=== PATIENT | male | born 1975 | race Caucasian/White ===

== ENCOUNTER 2021-05-17 06:46 | Day surgery (SDC) | payer OTHER, MEDICAID, SELFPAY ==
[2021-05-17] VITALS (20 sets, daily range): BP systolic 103–166; BP diastolic 71–101; PULSE 91–125; RESP 15–27; TEMP 36.3–36.5; O2SAT 95–100; BMI 24.4
--- NOTE | 2021-05-17 07:05 | ED.GENADULT ---
HPI - General Adult General Chief complaint: Urogenital-Male Stated complaint: Possible kidney stone, painful bloating Time Seen by Provider: 05/17/21 07:03 Source: patient Mode of arrival: Ambulatory History of Present Illness HPI narrative: 46-year-old gentleman with a history of smoking but no other documented medical history is he does not typically seek medical care. He has a congenital solitary kidney and history of kidney stones. He describes having kidney stone like pain which consist of a left sided sensation of a sword in pale in him from the front and coming out through the back. This time he had an associated painful bloated belly and has been unable to drink or eat any significant volumes for at least the last week. He describes being able to lay on his back only and is only able to sleep for couple of hours due to pain. He can not lay on his stomach at all secondary to pain. He has not had any urine output at all for the last 24-36 hours. He describes using 600 mg of ibuprofen b.i.d. to help with pain has been trying to limit this aware of its effect on renal function. He notes he has had increased reflux recently and severe gas. He tried Gas-X and had about 6 hours of relief after that however it did not work a 2nd time. He recently used laxative because he had not had a bowel movement for a while he reports ?lots of stool? and this did seem to help with relieving the bloating and pressure in the abdomen. He does report fevers and chills particularly around episodes of emesis. He does describe some nausea as well as orthostatic dizziness. He has had no chest pain, dyspnea or palpitations. He is not vaccinated and not currently planning to do so and has not been infected with COVID. He states that he uses masks religiously. Related Data Home Medications Medication Instructions Recorded Confirmed No Known Home Medications 05/17/21 05/17/21 Allergies Allergy/AdvReac Type Severity Reaction Status Date / Time oxycodone [From Percocet] AdvReac Intermediate Vomiting Verified 05/17/21 08:15 Review of Systems Review of Systems Narrative: Remainder of complete review of systems is otherwise unremarkable except for that included in the HPI. Patient History Medical History Absent kidney, congenital Social History household members: none Smoking Status: Current every day smoker alcohol intake: current Smoking Status: Current every day smoker alcohol intake frequency: 0-2 drinks per day Substance Use Type: does not use Exam Narrative Exam Narrative: General: Appears unwell but in no acute distress. He is able to give a completely coherent history. HEENT: Moist mucous membranes, normal sclera with reactive pupils, Neck: No JVD, supple Respiratory: Lungs are clear to auscultation, no wheezing no rales no rhonchi. Full and symmetrical air movement Cardiac: Regular rate and rhythm no murmurs no bruits Abdomen: Soft, mild diffuse distention and mild tenderness in the left upper quadrant radiating through to the left flank. No rebound or guarding Skin: Pale, Warm and dry, no rashes Neurologic: Grossly neurologically intact with no obvious asymmetries or abnormalities Extremities: No trauma, well perfused Psych: Cooperative, appropriate insight and affect Initial Vital Signs Initial Vital Signs: Vital Signs Temperature 97.4 F L 05/17/21 06:57 Pulse Rate 112 H 05/17/21 06:57 Respiratory Rate 22 05/17/21 06:57 Blood Pressure 159/90 H 05/17/21 06:57 Pulse Oximetry 99 05/17/21 06:57 Course Course Course Narrative: Due to his obstructing renal stone in his solitary ureter, he was taken urgently to the operating room with renal stent placed. Op note as follows: Operative Date/Time/Diagnoses Date of procedure: 05/17/21 Time of procedure: 11:27 Pre-op diagnosis: 1. Severe DESIREE 2. Congenital solitary left kidney 3. Large obstructing left mid ureteral calculus 4. Left nephrolithiasis Post-op diagnosis: same Procedure & Clinicians Procedure: 1. Cystoscopy/placement left ureteral stent. 2. Ureteral stone manipulation without removal. Same procedure as scheduled: Yes Indications: 1. Severe DESIREE 2. Congenital solitary left kidney 3. Obstructing left mid ureteral calculus 4. Left nephrolithiasis Surgeon: Scot Pino Click Yes if Unassisted: Yes Anesthesia Type: General Operative Notes Findings: 1. Urethra-normal penile segment. There was a relatively fixed 20 [place] proximal bulbar stricture that was gently dilated with the [place] sounds. 2. External sphincter- coapted 3. Prostate-4+ cm length with moderate trilobar hyperplasia. 4. Bladder-1+ trabeculation. There is modest intravesical protrusion of median lobe. The ureteral orifices were in normal position but lying in close proximity to the intravesical median lobe. Remainder bladder unremarkable. Closure Type: not applicable Specimen(s): none sent Applied: other (Eight [place]ol[place] by 22-32 cm multi-length stent (no retrieval line left attached)) Estimated Blood Loss (mL): 0 Blood products transfused: none Procedure in detail: Patient was positioned supine administered general anesthesia. He was then repositioned semi lithotomy and the lower abdomen, genitalia, and groin were then prepped and draped in sterile fashion. Twenty-two [place]ese panendoscope was passed lower urinary tract and was unable to be advanced due to the above-described stricture. [place] sounds were then used to gently dilate the segment. The panendoscope was reintroduced and advanced proximally without difficulty. Findings as described above. A 0.35 hybrid guidewire was then selected. This was then advanced through through the working channel of the scope and advanced in the left collecting system under direct and fluoroscopic guidance. Next, an 8 [place] by 22-32 cm multi-length stent was selected. This too was advanced over the guidewire under direct and fluoroscopic guidance. NO RETRIEVAL LINE WAS LEFT ATTACHED. The bladder was then drained completely and all instrumentation removed. The patient was then repositioned in supine, was awakened, and was transferred to a rcrandall to PACU in stable condition. Complications: none Post-operative Condition: stable Disposition: PACU Plan for aftercare: [facility] ED-holding. Signed By:<Electronically signed by Scot Pino MD>05/17/21 1132 Orders Ordered: ED Orders 05/17/21 09:56 COVID19 -Nasal swab/Pre-Proc Stat 05/17/21 10:02 Urinalysis and Microscopic Stat Urine Culture Stat 05/17/21 11:26 XR C-arm up to 60 min Routine 05/17/21 13:18 BMP [Basic Metabolic Panel] Stat Blood Culture Stat Acetaminophen (Acetaminophen 325 Mg Tablet) 650 mg PO Q4H PRN PRN Reason: Pain, Mild (1-3) Fentanyl (Fentanyl 100 Mcg/2 Ml Inj) 50 mcg IV Q1H PRN PRN Reason: Pain, Severe (7-10) Stop: 05/18/21 00:00 Sodium Chloride (Normal Saline 0.9%) 1,000 mls @ 150 mls/hr IV BOLUS ONE Stop: 05/17/21 19:36 Last Infusion: 05/17/21 15:14 Dose: 0 mls/hr Documented by: Admin: 05/17/21 13:07 Dose: 150 mls/hr Documented by: HOLLAND Ondansetron HCl (Ondansetron 4 Mg Odt) 4 mg SL Q8H PRN PRN Reason: Nausea And Vomiting Discontinued Medications Acetaminophen (Acetaminophen 325 Mg Tablet) 975 mg PO PACUNOW ONE Stop: 05/17/21 11:11 Last Admin: 05/17/21 12:58 Dose: Not Given Documented by: HOLLAND Hydrocodone Bitart/Acetaminophen (Hydrocodone/Acet 5/325 Tablet) 1 tab PO Q4H PRN PRN Reason: Pain, Moderate (4-6) Fentanyl (Fentanyl 100 Mcg/2 Ml Inj) 100 mcg IV NOW ONE Stop: 05/17/21 09:56 Last Admin: 05/17/21 09:58 Dose: 100 mcg Documented by: HOLLAND Fentanyl (Fentanyl 100 Mcg/2 Ml Inj) 0 mcg IV Q5M PRN PRN Reason: Pain, Moderate (4-6) Fentanyl (Fentanyl 100 Mcg/2 Ml Inj) 0 mcg IV Q5M PRN PRN Reason: Pain, Severe (7-10) Hydromorphone HCl (Hydromorphone 0.5 Mg Inj) 0.5 mg IV Q15MIN PRN PRN Reason: Pain, Last Admin: 05/17/21 08:52 Dose: 0.5 mg Documented by: Admin: 05/17/21 08:17 Dose: 0.5 mg Documented by: HOLLAND Hydromorphone HCl (Hydromorphone 1 Mg Inj) 1 mg IV NOW ONE Stop: 05/17/21 09:53 Last Admin: 05/17/21 09:55 Dose: Not Given Documented by: HOLLAND Hydromorphone HCl (Hydromorphone 0.5 Mg Inj) 0.5 mg IV Q2H PRN PRN Reason: Pain, Severe (7-10) Sodium Chloride (Normal Saline 0.9%) 1,000 mls @ 1,000 mls/hr IV BOLUS ONE Stop: 05/17/21 08:29 Last Infusion: 05/17/21 08:22 Dose: 0 mls/hr Documented by: Admin: 05/17/21 07:39 Dose: 1,000 mls/hr Documented by: HOLLAND Ceftriaxone Sodium 2,000 mg/ (Sodium Chloride) 100 mls @ 200 mls/hr IV NOW ONE Stop: 05/17/21 08:13 Last Infusion: 05/17/21 09:35 Dose: 0 mls/hr Documented by: Admin: 05/17/21 08:51 Dose: 200 mls/hr Documented by: HOLLAND Sodium Chloride (Normal Saline 0.9%) 1,000 mls @ 150 mls/hr IV BOLUS ONE Stop: 05/17/21 15:03 Last Infusion: 05/17/21 12:58 Dose: 0 mls/hr Documented by: Infusion: 05/17/21 10:17 Dose: 0 mls/hr Documented by: Admin: 05/17/21 08:52 Dose: 150 mls/hr Documented by: HOLLAND Lactated Ringer's (Lactated Ringers) 500 mls @ 25 mls/hr IV CONT STEPHANIE Last Admin: 05/17/21 12:58 Dose: Not Given Documented by: HOLLAND Lactated Ringer's (Lactated Ringers) 1,000 mls @ 125 mls/hr IV CONT STEPHANIE Last Admin: 05/17/21 12:58 Dose: Not Given Documented by: HOLLAND Naloxone HCl (Naloxone 0.4 Mg/Ml Vial) 0.2 mg IV Q2MIN PRN PRN Reason: Opiate Reversal Ondansetron HCl (Ondansetron 4 Mg/2 Ml Inj) 4 mg IV NOW ONE Stop: 05/17/21 07:31 Last Admin: 05/17/21 07:40 Dose: 4 mg Documented by: HOLLAND Vital Signs Vital signs: Vital Signs - 8 hr 05/17/21 10:40 05/17/21 11:31 05/17/21 11:35 Temperature 97.7 F 97.6 F Pulse Rate 106 H 95 H 95 H Respiratory Rate 16 18 18 Blood Pressure 144/89 H 126/78 114/71 Pulse Oximetry 98 96 96 05/17/21 11:40 05/17/21 11:50 05/17/21 11:55 Temperature Pulse Rate 94 H 98 H 95 H Respiratory Rate 18 15 17 Blood Pressure 111/72 103/82 130/80 Pulse Oximetry 95 96 96 05/17/21 13:01 05/17/21 13:30 05/17/21 14:00 Temperature Pulse Rate 99 H 111 H 94 H Respiratory Rate 19 22 20 Blood Pressure 134/93 H 133/80 Pulse Oximetry 98 99 100 05/17/21 14:30 05/17/21 15:00 Temperature Pulse Rate 102 H 98 H Respiratory Rate 21 18 Blood Pressure 141/98 H Pulse Oximetry 99 99 Medical Decision Making Lab Data Result diagrams: 05/17/21 07:00 05/17/21 13:18 Labs: Lab Results 05/17/21 05/17/21 05/17/21 Range/Units 07:00 07:00 07:00 WBC 24.5 H (4.5-11.0) X10^3/uL RBC 5.04 (4.5-5.9) X10^6/uL Hgb 15.0 (13.5-17.5) g/dL Hct 44.0 (41-53) % MCV 87.4 (80-100) fL MCH 29.8 (26-34) PG MCHC 34.1 (30-36) % RDW 14.1 (11.6-14.8) % Plt Count 397 (150-400) X10^3/uL Neut % (Auto) 82.9 H (50-75) % Lymph % (Auto) 4.7 L (25-40) % [place] % (Auto) 11.6 (3-14) % Eos % (Auto) 0.3 L (2-4) % Baso % (Auto) 0.5 (0-2) % Neut # (Auto) 90709 H (0473-8073) /uL Lymph # (Auto) 1200 (9067-2043) /uL [place] # (Auto) 2800 H (0-900) /uL Eos # (Auto) 100 (0-450) /uL Baso # (Auto) 100 (0-100) /uL Sodium Cancelled 129 L Potassium Cancelled 4.7 Chloride Cancelled 88 L Carbon Dioxide Cancelled 6 L* BUN Cancelled 196 H* Creatinine Cancelled 24.20 H* Estimated GFR Cancelled 2.0 L BUN/Creatinine Ratio Cancelled 8.1 Glucose Cancelled 90 Lactate (0.7-2.1) mmol/L Calcium Cancelled 10.2 Total Bilirubin 0.5 (0.2-1.3) mg/dL AST 14 L (17-59) IU/L ALT 6 (<50) IU/L Alkaline Phosphatase 135 H (38-126) U/L Total Protein 7.5 (6.3-8.2) g/dL Albumin 3.9 (3.5-5.0) g/dL Globulin 3.6 (1.7-4.1) g/dL Albumin/Globulin Ratio 1.1 (1.0-2.8) Urine Color Urine Appearance Urine pH (4.5-8.0) Ur Specific Tot[place] (1.000-1.035) Urine Protein (Negative) Urine Glucose (UA) (Negative) g/dL Urine Ketones (NEGATIVE) Urine Occult Blood (Negative) Urine Nitrate (Negative) Urine Bilirubin (NEGATIVE) Urine Urobilinogen (0.2) E.U./dL Ur Leukocyte Esterase (NEGATIVE) Urine RBC (0-5/HPF) Urine WBC (0-5/HPF) Amorphous Sediment Urine Bacteria (None) Ur Culture Indicated? SARS-CoV-2 (PCR) (Negative) 05/17/21 05/17/21 05/17/21 Range/Units 07:00 09:56 10:02 WBC (4.5-11.0) X10^3/uL RBC (4.5-5.9) X10^6/uL Hgb (13.5-17.5) g/dL Hct (41-53) % MCV (80-100) fL MCH (26-34) PG MCHC (30-36) % RDW (11.6-14.8) % Plt Count (150-400) X10^3/uL Neut % (Auto) (50-75) % Lymph % (Auto) (25-40) % [place] % (Auto) (3-14) % Eos % (Auto) (2-4) % Baso % (Auto) (0-2) % Neut # (Auto) (4084-5478) /uL Lymph # (Auto) (5897-0949) /uL [place] # (Auto) (0-900) /uL Eos # (Auto) (0-450) /uL Baso # (Auto) (0-100) /uL Sodium Potassium Chloride Carbon Dioxide BUN Creatinine Estimated GFR BUN/Creatinine Ratio Glucose Lactate 0.7 (0.7-2.1) mmol/L Calcium Total Bilirubin (0.2-1.3) mg/dL AST (17-59) IU/L ALT (<50) IU/L Alkaline Phosphatase (38-126) U/L Total Protein (6.3-8.2) g/dL Albumin (3.5-5.0) g/dL Globulin (1.7-4.1) g/dL Albumin/Globulin Ratio (1.0-2.8) Urine Color Red Urine Appearance Cloudy Urine pH 6.0 (4.5-8.0) Ur Specific [place] 1.010 (1.000-1.035) Urine Protein 1+ H (Negative) Urine Glucose (UA) Negative (Negative) g/dL Urine Ketones 1+ H (NEGATIVE) Urine Occult Blood 3+ H (Negative) Urine Nitrate Negative (Negative) Urine Bilirubin Negative (NEGATIVE) Urine Urobilinogen 0.2 (0.2) E.U./dL Ur Leukocyte Esterase 3+ H (NEGATIVE) Urine RBC >100/hpf H (0-5/HPF) Urine WBC 5-10/hpf H (0-5/HPF) Amorphous Sediment 1+ Urine Bacteria None seen (None) Ur Culture Indicated? Specimen cultured SARS-CoV-2 (PCR) Negative (Negative) 05/17/21 Range/Units 13:18 WBC (4.5-11.0) X10^3/uL RBC (4.5-5.9) X10^6/uL Hgb (13.5-17.5) g/dL Hct (41-53) % MCV (80-100) fL MCH (26-34) PG MCHC (30-36) % RDW (11.6-14.8) % Plt Count (150-400) X10^3/uL Neut % (Auto) (50-75) % Lymph % (Auto) (25-40) % [place] % (Auto) (3-14) % Eos % (Auto) (2-4) % Baso % (Auto) (0-2) % Neut # (Auto) (4065-1460) /uL Lymph # (Auto) (2143-4041) /uL [place] # (Auto) (0-900) /uL Eos # (Auto) (0-450) /uL Baso # (Auto) (0-100) /uL Sodium 134 L Potassium 4.4 Chloride 97 L Carbon Dioxide 11 L BUN 166 H* Creatinine 18.31 H* Estimated GFR 2.8 L BUN/Creatinine Ratio 9.1 Glucose 92 Lactate (0.7-2.1) mmol/L Calcium 9.9 Total Bilirubin (0.2-1.3) mg/dL AST (17-59) IU/L ALT (<50) IU/L Alkaline Phosphatase (38-126) U/L Total Protein (6.3-8.2) g/dL Albumin (3.5-5.0) g/dL Globulin (1.7-4.1) g/dL Albumin/Globulin Ratio (1.0-2.8) Urine Color Urine Appearance Urine pH (4.5-8.0) Ur Specific [place] (1.000-1.035) Urine Protein (Negative) Urine Glucose (UA) (Negative) g/dL Urine Ketones (NEGATIVE) Urine Occult Blood (Negative) Urine Nitrate (Negative) Urine Bilirubin (NEGATIVE) Urine Urobilinogen (0.2) E.U./dL Ur Leukocyte Esterase (NEGATIVE) Urine RBC (0-5/HPF) Urine WBC (0-5/HPF) Amorphous Sediment Urine Bacteria (None) Ur Culture Indicated? SARS-CoV-2 (PCR) (Negative) Imaging Data CT scan - abdomen/pelvis: Radiologist's Impression: FINDINGS: Image quality: Excellent. Lung bases: Small left pleural effusion with left basilar atelectasis. Tiny hiatal hernia. Heart: No significant findings. URINARY: There is a elongated stone in the mid left ureter measuring 8 x 10 x 31 mm stone, causing moderate left hydronephrosis with marked perinephric stranding. A small amount of left perinephric fluid is present. Right kidney is absent. Left kidney is enlarged measuring 18.8 cm in length, which is likely secondary to compensatory hypertrophy and superimposed edema. There are multiple left renal calculi. A large staghorn stone is seen in the renal pelvis measuring 26 x 24 cm. Numerous smaller stones are present in left kidney. ABDOMEN: Liver: Unremarkable. Gallbladder: Unremarkable. Biliary ducts: Unremarkable. Pancreas: Unremarkable. Spleen: Unremarkable. Adrenal Glands: Unremarkable. Stomach and Bowel: Stomach, small bowel loops, and colon are unremarkable. Normal appendix Peritoneum: There is a small amount of free fluid. No free air. Ventral Wall: No hernia. Abdominal Nodes: Mild retroperitoneal lymphadenopathy. There is a 1.4 x 2.0 cm left para-aortic lymph node. A 1.2 cm aortocaval lymph node is noted. Vessels: Aorta and inferior vena cava are normal in size. PELVIS: Pelvic Organs: Unremarkable. Pelvic Nodes: Unremarkable. Miscellaneous: Small fat containing left inguinal hernia is seen. Bones: Unremarkable. IMPRESSION: 1. There is a 8 x 10 x 31 mm obstructive stone in the mid left ureter causing moderate left hydronephrosis and marked perinephric stranding. 2. Multiple nonobstructive left renal calculi are present. 3. Congenital absence of right kidney. 4. Left kidney is markedly enlarged measuring 18.8 cm in length most likely secondary to a combination of compensatory hypertrophy and edema. 5. Small left pleural effusion with left basilar atelectasis. 6. A small amount of free fluid is present. 7. Mild retroperitoneal lymphadenopathy, most likely reactive. This finding is nonspecific and may be secondary to infectious, inflammatory or neoplastic etiology. Recommend clinical correlation and follow up. The result was discussed with Dr. Chapa. Dictated by: Jake Rosas M.D. on 05/17/2021 at 9:16 ECG Data Interpretation: Sinus rhythm at a rate of 94 Normal axis, normal intervals P-waves are not peaked No acute ischemic changes MDM Narrative Medical decision making narrative: 46-year-old gentleman with congenital single kidney with a history of kidney stones. Presents with a week of pain 36 hours of an urea and CT scan revealing a large obstructing mid ureteral stone and labs indicate acute renal failure without hyperkalemia. Phone calls were made to [facility], [facility] and [facility]. Currently no beds available, we have shared clinical concerns and are on waiting lists at this time 10:00 care is reviewed with Dr. Pino, urologist at [facility]. He is working on manipulating clinic in OR schedules to urgently place a left ureteral stent will Re continuing to work on options for transfer. Will need Nephrology. Based on the large stone and the large volume of stone load in the solitary kidney, Dr. Pino is recommendation was to try to transfer him to the [facility]. Phone call was initiated to them as well. All findings are reviewed with patient. He is significantly concerned as he just lost all of his unemployment benefits, has no income coming in and no current sure inside. The possibility of dialysis he finds appropriately frightening. 1034 discussed with [facility]/. No current beds [address] [facility]. No current beds, but may have one soon. Will need to make sure urology will accept, page is out to them now 11:54 [facility] urology recommends outpt care if stent was placed. [facility] accepts patient. Care is reviewed with Dr Blue, hospitalist. 1315 patient is updated on progress, findings and plan. Increasing urine output with stones passing. Lactic acid and blood cultures are obtained and a BMP is repeated. He has had a total of 1 L of fluid and continues with 150 cc an hours saline. Critical Care Time Critical Care Time Critical Care Time: Yes Total Critical Care Time: 41 Attestation: Critical care time is separate from other billable procedures. There is a high probability of a significant, sudden or life-threatening deterioration that requires my full and direct attention, intervention and personal management. This critical care time includes consultation with family and other consulting doctors, review of records, and interpretation of data from labs, EKGs and imaging as well as managements of acute renal failure Discharge Plan Departure Patient Disposition: [facility] Clinical Impression: Acute renal failure, Hydronephrosis with renal and ureteral calculous obstruction, Congenital solitary kidney
[2021-05-17 07:31] LABS: Add Manual Diff / Slide Review NO; Basophils Absolute Auto 100 /uL (0-100); Basophils Percent Auto 0.5 % (0-2); Eosinophils Absolute Auto 100 /uL (0-450); Eosinophils Percent Auto 0.3 % (2-4); Lymphocytes Absolute Auto 1200 /uL (1100-4500); Lymphocytes Percent Auto 4.7 % (25-40); Mean Corpuscular HGB Conc 34.1 % (30-36); Mean Corpuscular Hemoglobin 29.8 PG (26-34); Mean Corpuscular Volume 87.4 fL (80-100); Monocytes Absolute Auto 2800 /uL (0-900); Monocytes Percent Auto 11.6 % (3-14); Neutrophils Absolute Auto 20300 /uL (1500-7000); Neutrophils Percent Auto 82.9 % (50-75); Platelet Count 397 X10^3/uL (150-400); Red Blood Cell Count 5.04 X10^6/uL (4.5-5.9); Red Cell Distribution Width 14.1 % (11.6-14.8); White Blood Cell Count 24.5 X10^3/uL (4.5-11.0)
[2021-05-17] MEDS: SODIUM CHLORIDE 0.9% 1,000 ML 1000 ML IV (07:39)
[2021-05-17] MEDS: ONDANSETRON 4 MG/2 ML INJ IV (07:40)
[2021-05-17 08:09] LABS: Alanine Aminotransferase 6 IU/L (<50); Albumin 3.9 g/dL (3.5-5.0); Albumin Globulin Ratio 1.1 (1.0-2.8); Alkaline Phosphatase 135 U/L (38-126); Aspartate Aminotransferase 14 IU/L (17-59); Bilirubin Total 0.5 mg/dL (0.2-1.3); Calcium 10.2 mg/dL (8.4-10.2); Chloride 88 mmol/L (98-107); Globulin 3.6 g/dL (1.7-4.1); Glucose 90 mg/dL (70-100); Potassium 4.7 mmol/L (3.4-5.1); Sodium 129 mmol/L (137-145); Total Protein 7.5 g/dL (6.3-8.2)
--- NOTE | 2021-05-17 08:12 | DI.CT.S_ITS ---
PROCEDURE: CT ABDOMEN PELVIS WO CON INDICATIONS: abdominal pain, leukocytosis, no urine out, solitary kidney TECHNIQUE: Axial sections were acquired from the lung bases to the pubic symphysis. Coronal and sagittal reformats were performed. For radiation dose reduction, the following was used: automated exposure control, adjustment of mA and/or kV according to patient size. COMPARISON: [facility], CR, XR RETROGRADE UROGRAPHY, 06/28/2018, 18:02. [facility], CR, KUB, 09/12/2012, 12:45. [facility], CT, KUB - CT (PNL), 09/08/2012, 13:40. [facility], CT, KUB - CT (PNL), 02/24/2014, 21:04. FINDINGS: Image quality: Excellent. Lung bases: Small left pleural effusion with left basilar atelectasis. Tiny hiatal hernia. Heart: No significant findings. URINARY: There is a elongated stone in the mid left ureter measuring 8 x 10 x 31 mm stone, causing moderate left hydronephrosis with marked perinephric stranding. A small amount of left perinephric fluid is present. Right kidney is absent. Left kidney is enlarged measuring 18.8 cm in length, which is likely secondary to compensatory hypertrophy and superimposed edema. There are multiple left renal calculi. A large staghorn stone is seen in the renal pelvis measuring 26 x 24 cm. Numerous smaller stones are present in left kidney. ABDOMEN: Liver: Unremarkable. Gallbladder: Unremarkable. Biliary ducts: Unremarkable. Pancreas: Unremarkable. Spleen: Unremarkable. Adrenal Glands: Unremarkable. Stomach and Bowel: Stomach, small bowel loops, and colon are unremarkable. Normal appendix Peritoneum: There is a small amount of free fluid. No free air. Ventral Wall: No hernia. Abdominal Nodes: Mild retroperitoneal lymphadenopathy. There is a 1.4 x 2.0 cm left para-aortic lymph node. A 1.2 cm aortocaval lymph node is noted. Vessels: Aorta and inferior vena cava are normal in size. PELVIS: Pelvic Organs: Unremarkable. Pelvic Nodes: Unremarkable. Miscellaneous: Small fat containing left inguinal hernia is seen. Bones: Unremarkable. IMPRESSION: 1. There is a 8 x 10 x 31 mm obstructive stone in the mid left ureter causing moderate left hydronephrosis and marked perinephric stranding. 2. Multiple nonobstructive left renal calculi are present. 3. Congenital absence of right kidney. 4. Left kidney is markedly enlarged measuring 18.8 cm in length most likely secondary to a combination of compensatory hypertrophy and edema. 5. Small left pleural effusion with left basilar atelectasis. 6. A small amount of free fluid is present. 7. Mild retroperitoneal lymphadenopathy, most likely reactive. This finding is nonspecific and may be secondary to infectious, inflammatory or neoplastic etiology. Recommend clinical correlation and follow up. The result was discussed with Dr. Chapa. Dictated by: Jake Rosas M.D. on 05/17/2021 at 9:16 Approved by: Jake Rosas M.D. on 05/17/2021 at 9:35
[2021-05-17 08:15] LABS: HEMOLYSIS < 15 (0-50)
[2021-05-17 08:16] LABS: BUN Creatinine Ratio 8.1 (6-22)
[2021-05-17] MEDS: HYDROMORPHONE 0.5 MG INJ IV ×2 (08:17→08:52)
[2021-05-17 08:18] LABS: Blood Urea Nitrogen 196 mg/dL (9-20); Carbon Dioxide 6 mmol/L (22-32)
[2021-05-17] MEDS: cefTRIAXone 2,000 MG in SODIUM CHLORIDE 0.9% 100 ML 200 ML IV (08:51)
[2021-05-17] MEDS: SODIUM CHLORIDE 0.9% 1,000 ML 150 ML IV ×2 (08:52→13:07)
[2021-05-17] MEDS: fentaNYL 100 MCG/2 ML INJ IV (09:58)
--- NOTE | 2021-05-17 10:07 | PC.NURSE ---
Pt w/o urine output x 1-2 days. c/o left flank pain that wraps around to front. Denies nausea/vomiting/ shortness of breath.
[2021-05-17 10:11] LABS: Bacteria Urine None Seen
[2021-05-17 10:14] LABS: Appearance Urine UA CLOUDY; Bilirubin Urine UA NEGATIVE (NEGATIVE); Color Urine UA RED; Glucose Urine UA NEGATIVE (Negative); Ketones Urine UA 1+ (NEGATIVE); Leukocyte Esterase Urine UA 3+ (NEGATIVE); Nitrite Urine UA NEGATIVE (Negative); Occult Blood Urine UA 3+ (Negative); Protein Urine UA 1+ (Negative); Urobilinogen Urine UA 0.2 E.U./dL (0.2)
--- NOTE | 2021-05-17 10:16 | PC.NURSE ---
Pt to same day surgery. Report to Elenita MURDOCK.
[2021-05-17 10:21] LABS: Amorphous Sediment Urine 1+; Culture Indicated Urine Specimen Cultured; RBC Urine >100/HPF (0-5/HPF); WBC Urine 5-10/HPF (0-5/HPF)
--- NOTE | 2021-05-17 10:27 | SUR.OPER ---
Supine on padded OR bed, head on pillow, arms secured on padded arm boards at <90 degrees abduction, legs uncrossed, safety belt at thigh, tape over blanket over lower legs.
[2021-05-17 10:28] LABS: COVID19 -Nasal RAPID Negative (Negative)
--- NOTE | 2021-05-17 10:49 | SUR.HOLD ---
patient from ED on stretcher, alert and oriented. Seen by Dr Pino and Dr Elizondo. Voided x3 in OPD.
--- NOTE | 2021-05-17 10:49 | PM.CN ---
History of Present Illness Consult details Date Patient Seen: 05/17/21 Time Patient Seen: 10:49 Chief complaint: Possible kidney stone, painful bloating Reason for consult: 1. Acute kidney injury Requesting provider: Bárbara Chapa Narrative: The patient is a 46-year-old white male with congenital solitary left kidney and history of recurrent nephrolithiasis presenting to the [facility] ED today with complaint of 5 days of inability to eat and p.o. fluid intake. He states that he is not voided for at least a day and half. He had had ongoing abdominal pain that improved when he took a laxative. Unfortunately he tried to manage his pain with ibuprofen. CT KUB demonstrates a large nonobstructing intrarenal stone burden and a large obstructing left mid ureteral calculus. There was severe associated left hydronephrosis proximal to the stone. Laboratories were consistent with severe DESIREE. He has begun to produce some urine since placing intravenous line and receiving intravenous fluid resuscitation. Meds Home Medications and Allergies Home Medications Medication Instructions Recorded Confirmed Type No Known Home Medications 05/17/21 05/17/21 History Allergies Allergy/AdvReac Type Severity Reaction Status Date / Time oxycodone [From Percocet] AdvReac Intermediate Vomiting Verified 05/17/21 08:15 Review of Systems Review of Systems ROS: Yes All systems reviewed with the patient and are negative except as otherwise documented Exam Vital Signs (past 8 hours): - 05/17/21 06:57 05/17/21 07:45 05/17/21 08:00 Temperature 97.4 F L Pulse Rate 112 H 91 H 92 H Respiratory Rate 22 21 21 Blood Pressure 159/90 H 150/81 H Pulse Oximetry 99 99 100 05/17/21 08:31 05/17/21 08:43 05/17/21 09:00 Temperature Pulse Rate 103 H 96 H 94 H Respiratory Rate 27 H 23 26 H Blood Pressure 166/81 H 147/83 H Pulse Oximetry 100 99 99 05/17/21 09:30 05/17/21 10:00 05/17/21 10:02 Temperature Pulse Rate 93 H 101 H 125 H Respiratory Rate 20 23 22 Blood Pressure 150/83 H 157/101 H Pulse Oximetry 99 98 05/17/21 10:40 Temperature 97.7 F Pulse Rate 106 H Respiratory Rate 16 Blood Pressure 144/89 H Pulse Oximetry 98 Oxygen Delivery Method Room Air Narrative Exam Narrative: He is a well-developed, thin middle-aged white male appearing somewhat chronically ill. He is in no distress. Head/neck-sclera clear pupils are round and equal bilaterally. No visible evidence of adenopathy or JVD. Chest-equal, and unlabored expansion bilaterally. Heart-normal sinus rhythm. Objective Labs Result Diagrams: 05/17/21 07:00 05/17/21 07:00 Labs: Laboratory Results - last 24 hr 05/17/21 05/17/21 05/17/21 07:00 07:00 07:00 WBC 24.5 H RBC 5.04 Hgb 15.0 Hct 44.0 MCV 87.4 MCH 29.8 MCHC 34.1 RDW 14.1 Plt Count 397 Neut % (Auto) 82.9 H Lymph % (Auto) 4.7 L Price % (Auto) 11.6 Eos % (Auto) 0.3 L Baso % (Auto) 0.5 Neut # (Auto) 70732 H Lymph # (Auto) 1200 Price # (Auto) 2800 H Eos # (Auto) 100 Baso # (Auto) 100 Sodium Cancelled 129 L Potassium Cancelled 4.7 Chloride Cancelled 88 L Carbon Dioxide Cancelled 6 L* BUN Cancelled 196 H* Creatinine Cancelled 24.20 H* Estimated GFR Cancelled 2.0 L BUN/Creatinine Ratio Cancelled 8.1 Glucose Cancelled 90 Calcium Cancelled 10.2 Total Bilirubin 0.5 AST 14 L ALT 6 Alkaline Phosphatase 135 H Total Protein 7.5 Albumin 3.9 Globulin 3.6 Albumin/Globulin Ratio 1.1 Urine Color Urine Appearance Urine pH Ur Specific Webb Urine Protein Urine Glucose (UA) Urine Ketones Urine Occult Blood Urine Nitrate Urine Bilirubin Urine Urobilinogen Ur Leukocyte Esterase Urine RBC Urine WBC Amorphous Sediment Urine Bacteria Ur Culture Indicated? SARS-CoV-2 (PCR) 05/17/21 05/17/21 09:56 10:02 WBC RBC Hgb Hct MCV MCH MCHC RDW Plt Count Neut % (Auto) Lymph % (Auto) Price % (Auto) Eos % (Auto) Baso % (Auto) Neut # (Auto) Lymph # (Auto) Price # (Auto) Eos # (Auto) Baso # (Auto) Sodium Potassium Chloride Carbon Dioxide BUN Creatinine Estimated GFR BUN/Creatinine Ratio Glucose Calcium Total Bilirubin AST ALT Alkaline Phosphatase Total Protein Albumin Globulin Albumin/Globulin Ratio Urine Color Red Urine Appearance Cloudy Urine pH 6.0 Ur Specific Webb 1.010 Urine Protein 1+ H Urine Glucose (UA) Negative Urine Ketones 1+ H Urine Occult Blood 3+ H Urine Nitrate Negative Urine Bilirubin Negative Urine Urobilinogen 0.2 Ur Leukocyte Esterase 3+ H Urine RBC >100/hpf H Urine WBC 5-10/hpf H Amorphous Sediment 1+ Urine Bacteria None seen Ur Culture Indicated? Specimen cultured SARS-CoV-2 (PCR) Negative [facility] Medical History Absent kidney, congenital Social History household members: none Tobacco & Substance Use Smoking Status: Current every day smoker alcohol intake: current Assessment & Plan Assessment & Plan narrative: Assessment: 1. Large obstructing left mid ureteral calculus. 2. Severe DESIREE. 3. Congenital solitary left kidney. 4. Left nephrolithiasis. Plan: 1. Urgent CYSTOSCOPY AND PLACEMENT LEFT URETERAL STENT. 2. Patient will best be served in facility with staff nephrology. 3. Patient would benefit from PCNL-future. Time Spent With Patient Critical Care time: I spent a total of [] minutes of critical care time on this patient's care today; this time is exclusive of procedural time.
--- NOTE | 2021-05-17 10:54 | PM.PREOP ---
Pre-operative Note COVID-19 COVID-19 status: Negative Result date/Date tested (Pos, Neg/Pending): 05/17/21 Interval Note History & Physical reviewed/Exam performed by Physician: Yes Changes to H&P: No
--- NOTE | 2021-05-17 11:27 | PM.OP.1 ---
Operative Date/Time/Diagnoses Date of procedure: 05/17/21 Time of procedure: 11:27 Pre-op diagnosis: 1. Severe DESIREE 2. Congenital solitary left kidney 3. Large obstructing left mid ureteral calculus 4. Left nephrolithiasis Post-op diagnosis: same Procedure & Clinicians Procedure: 1. Cystoscopy/placement left ureteral stent. 2. Ureteral stone manipulation without removal. Same procedure as scheduled: Yes Indications: 1. Severe DESIREE 2. Congenital solitary left kidney 3. Obstructing left mid ureteral calculus 4. Left nephrolithiasis Surgeon: Scot Pino Click Yes if Unassisted: Yes Anesthesia Type: General Operative Notes Findings: 1. Urethra-normal penile segment. 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 2. External sphincter- coapted 3. Prostate-4+ cm length with moderate trilobar hyperplasia. 4. Bladder-1+ trabeculation. There is modest intravesical protrusion of median lobe. The ureteral orifices were in normal position but lying in close proximity to the intravesical median lobe. Remainder bladder unremarkable. Closure Type: not applicable Specimen(s): none sent Applied: other (Eight Mosotho by 22-32 cm multi-length stent (no retrieval line left attached)) Estimated Blood Loss (mL): 0 Blood products transfused: none Procedure in detail: Patient was positioned supine administered general anesthesia. He was then repositioned semi lithotomy and the lower abdomen, genitalia, and groin were then prepped and draped in sterile fashion. Twenty-two Mosotho panendoscope was passed lower urinary tract and was unable to be advanced due to the above-described stricture. Klarissa sounds were then used to gently dilate the segment. The panendoscope was reintroduced and advanced proximally without difficulty. Findings as described above. A 0.35 hybrid guidewire was then selected. This was then advanced through through the working channel of the scope and advanced in the left collecting system under direct and fluoroscopic guidance. Next, an 8 Mosotho by 22-32 cm multi-length stent was selected. This too was advanced over the guidewire under direct and fluoroscopic guidance. NO RETRIEVAL LINE WAS LEFT ATTACHED. The bladder was then drained completely and all instrumentation removed. The patient was then repositioned in supine, was awakened, and was transferred to a [facility] to PACU in stable condition. Complications: none Post-operative Condition: stable Disposition: PACU Plan for aftercare: [facility] ED-holding.
--- NOTE | 2021-05-17 12:40 | PC.NURSE ---
Urine collected after patient stated passing stones. Strained the urine and there were quite a few stones. They were sifted, placed into a specimen cup and left at bedside for doctor to evaluate.
[2021-05-17 12:43] LABS: Lactate (Lactic Acid) 0.7 mmol/L (0.7-2.1)
[2021-05-17 13:44] LABS: Calcium 9.9 mg/dL (8.4-10.2); Carbon Dioxide 11 mmol/L (22-32); Chloride 97 mmol/L (98-107); Glucose 92 mg/dL (70-100); HEMOLYSIS < 15 (0-50); Potassium 4.4 mmol/L (3.4-5.1); Sodium 134 mmol/L (137-145)
[2021-05-17 13:51] LABS: Estimated Glomerular Filt Rate 2.8 mL/min (>60)
[2021-05-17 13:52] LABS: BUN Creatinine Ratio 9.1 (6-22)
[2021-05-17 13:53] LABS: Blood Urea Nitrogen 166 mg/dL (9-20)
--- NOTE | 2021-05-17 14:40 | PC.NURSE ---
825mL output of urine from 3 separate voids
== END 2021-05-17 11:59 | disposition admitted as inpatient to this hospital (09) ==
LOC: ED 09:59 → OR 10:08 → ED 17:03
PROVIDERS: Emergency Provider Emergency Medicine; Visit Provider Specialist
PROC: (CPT 52332; principal; 2021-05-17 10:45)
DX: N20.1 Calculus of ureter (principal); N17.9 Acute kidney failure, unspecified; Q60.0 Renal agenesis, unilateral; N20.2 Calculus of kidney with calculus of ureter; Z20.822 Contact with and (suspected) exposure to COVID-19
CPT/HCPCS: 52332; 52341; 36415; 51798; 74176; 76000; 80048; 80053; 81001; 83605; 85025; 87040; 87086; 87635; 93005; 99219; 99284; C9803; J0696; J1170; J2250; J2405; J2704; J3010

== ENCOUNTER → 2021-07-08 12:30 | Outpatient (CLI) | payer OTHER, MEDICAID, SELFPAY ==
[2021-07-08 13:02] LABS: Appearance Urine UA SL CLOUDY; Bilirubin Urine UA NEGATIVE (NEGATIVE); Color Urine UA YELLOW; Glucose Urine UA NEGATIVE (Negative); Ketones Urine UA NEGATIVE (NEGATIVE); Leukocyte Esterase Urine UA 3+ (NEGATIVE); Nitrite Urine UA NEGATIVE (Negative); Occult Blood Urine UA 3+ (Negative); Protein Urine UA 1+ (Negative); Urobilinogen Urine UA 0.2 E.U./dL (0.2)
[2021-07-08 13:15] LABS: BUN Creatinine Ratio 12.5 (6-22); Blood Urea Nitrogen 16 mg/dL (9-20); Calcium 10.5 mg/dL (8.4-10.2); Carbon Dioxide 26 mmol/L (22-32); Chloride 101 mmol/L (98-107); Estimated Glomerular Filt Rate > 60.0 mL/min (>60); Glucose 102 mg/dL (70-100); HEMOLYSIS < 15 (0-50); Potassium 4.5 mmol/L (3.4-5.1); Sodium 138 mmol/L (137-145)
[2021-07-08 13:21] LABS: Bacteria Urine None Seen; Culture Indicated Urine Specimen Cultured; RBC Urine 5-10/HPF (0-5/HPF); WBC Urine 10-30/HPF (0-5/HPF)
== END ==
PROVIDERS: Referring Provider Specialist; Visit Provider Specialist
DX: N13.2 Hydronephrosis with renal and ureteral calculous obstruction (principal); N17.9 Acute kidney failure, unspecified; Q60.0 Renal agenesis, unilateral; R30.0 Dysuria
CPT/HCPCS: 36415; 80048; 81001; 87086

== ENCOUNTER → 2021-07-14 14:36 | Outpatient (CLI) | payer OTHER, MEDICAID, SELFPAY ==
--- NOTE | 2021-07-14 14:37 | DI.RAD.S_ITS ---
PROCEDURE: XR KUB INDICATIONS: kidney stones TECHNIQUE: One view of the abdomen acquired. COMPARISON: [facility], CT, CT ABDOMEN PELVIS WO CON, 05/17/2021, 8:25. [facility], CR, KUB XRAY (1 VIEW ABDOMEN), 09/16/2012, 12:50. FINDINGS: Surgical changes and devices: A left ureteral stent is present. Bowel: Bowel gas pattern is normal. Soft tissues: A large branching staghorn calculus is seen projecting over the upper pole of the left kidney. Additional smaller calcifications are seen projecting over the mid to lower kidney. No calcification is seen along the course of the ureteral stent. The previously seen left mid ureteral calculus is not visualized. Visualized solid organ contours appear normal in size. Bones: No suspicious bony lesions. IMPRESSION: Left ureteral stent is seen with multiple left renal calculi. The previously seen large mid ureteral calculus is no longer visualized. Dictated by: Rj Hamilton M.D. on 07/14/2021 at 16:32 Approved by: Rj Hamilton M.D. on 07/14/2021 at 16:42
== END ==
PROVIDERS: Referring Provider Specialist; Visit Provider Specialist
DX: N13.2 Hydronephrosis with renal and ureteral calculous obstruction (principal); N17.9 Acute kidney failure, unspecified; Q60.0 Renal agenesis, unilateral; Z96.0 Presence of urogenital implants
CPT/HCPCS: 74018

== ENCOUNTER → 2021-07-20 09:17 | Outpatient (CLI) | payer OTHER, MEDICAID, SELFPAY ==
[2021-07-20 11:01] LABS: Appearance Urine UA CLEAR; Bilirubin Urine UA NEGATIVE (NEGATIVE); Color Urine UA YELLOW; Glucose Urine UA NEGATIVE (Negative); Ketones Urine UA NEGATIVE (NEGATIVE); Leukocyte Esterase Urine UA 3+ (NEGATIVE); Nitrite Urine UA NEGATIVE (Negative); Occult Blood Urine UA 3+ (Negative); Protein Urine UA TRACE (Negative); Urobilinogen Urine UA 0.2 E.U./dL (0.2)
[2021-07-20 11:14] LABS: Amorphous Sediment Urine 1+; Bacteria Urine Moderate (10-30); Culture Indicated Urine Specimen Cultured; RBC Urine 5-10/HPF (0-5/HPF); WBC Urine 30-100/HPF (0-5/HPF)
== END ==
PROVIDERS: Visit Provider Specialist
DX: N13.2 Hydronephrosis with renal and ureteral calculous obstruction (principal); N17.9 Acute kidney failure, unspecified; Q60.0 Renal agenesis, unilateral; Z87.442 Personal history of urinary calculi
CPT/HCPCS: 81001; 87086; 99215

== ENCOUNTER → 2021-09-05 13:10 | Outpatient (CLI) | payer OTHER, MEDICAID, SELFPAY ==
[2021-09-05 16:26] LABS: Influenza A - CEPHEID Flu A NEGATIVE (NEGATIVE); Influenza B - CEPHEID Flu B NEGATIVE (NEGATIVE)
[2021-09-05 16:33] LABS: COVID-19 CEPHEID PCR (VTM/NP) Negative (Negative)
== END ==
PROVIDERS: Visit Provider Physician Assistant
DX: Z20.822 Contact with and (suspected) exposure to COVID-19 (principal)
CPT/HCPCS: 87502; C9803; U0003

== ENCOUNTER → 2021-10-19 12:06 | Outpatient (CLI) | payer OTHER, MEDICAID, SELFPAY ==
[2021-10-19 12:52] LABS: Bilirubin Urine UA NEGATIVE (NEGATIVE); Color Urine UA YELLOW; Glucose Urine UA NEGATIVE (Negative); Ketones Urine UA NEGATIVE (NEGATIVE); Leukocyte Esterase Urine UA 3+ (NEGATIVE); Nitrite Urine UA NEGATIVE (Negative); Occult Blood Urine UA 3+ (Negative); Protein Urine UA NEGATIVE (Negative); Urobilinogen Urine UA 0.2 E.U./dL (0.2)
[2021-10-19 13:01] LABS: Appearance Urine UA Slightly Cloudy
[2021-10-19 13:04] LABS: Amorphous Sediment Urine 1+; Bacteria Urine Occasional (0-1); Culture Indicated Urine Specimen Cultured; RBC Urine 1-5/HPF (0-5/HPF); Squamous Epithelial Cell Urine 0-1 /HPF (0-5/HPF); WBC Urine 5-10/HPF (0-5/HPF)
== END ==
DX: N20.0 Calculus of kidney (principal)
CPT/HCPCS: 36415; 81001; 87086

== ENCOUNTER → 2021-10-31 13:04 | Outpatient (CLI) | payer OTHER, MEDICAID, SELFPAY ==
[2021-10-31 16:21] LABS: COVID-19 CEPHEID PCR (VTM/NP) Negative (Negative)
== END ==
PROVIDERS: Visit Provider Family Medicine Sleep Medicine
DX: Z20.822 Contact with and (suspected) exposure to COVID-19 (principal)
CPT/HCPCS: C9803; U0003; U0005

== ENCOUNTER → 2022-01-03 07:47 | Outpatient (CLI) | payer OTHER, MEDICAID, SELFPAY | PROVIDERS: Visit Provider Specialist | DX: N20.0 Calculus of kidney (principal); R30.0 Dysuria | CPT/HCPCS: 87086 ==

== ENCOUNTER → 2022-01-03 08:32 | Outpatient (CLI) | payer OTHER, MEDICAID, SELFPAY ==
--- NOTE | 2022-01-03 08:34 | DI.RAD.S_ITS ---
PROCEDURE: XR KUB INDICATIONS: kidney stones TECHNIQUE: One view of the abdomen acquired. COMPARISON: [facility], CR, XR KUB, 07/14/2021, 14:42. FINDINGS: Surgical changes and devices: None. Bowel: Bowel gas pattern is normal. Soft tissues: The left kidney has multiple stones with the 2 largest in the superior pole of the left kidney measuring 5 x 6 mm and 12 x 7 mm. Multiple additional smaller 2-5 mm stones are seen in the middle pole and inferior pole. Visualized solid organ contours appear normal in size. No stones are seen along the expected course of the ureters. Bones: No suspicious bony lesions. IMPRESSION: Multiple left nephrolithiasis. No ureters are seen along the expected course of the ureters. Dictated by: Efrem Plunkett M.D. on 01/03/2022 at 13:26 Approved by: Efrem Plunkett M.D. on 01/03/2022 at 13:28
[2022-01-03 11:27] LABS: Calcium 10.6 mg/dL (8.4-10.2); Uric Acid 6.4 mg/dL (3.5-8.5)
[2022-01-04 07:44] LABS: Parathyroid Hormone Int 50 pg/mL (15-65)
== END ==
PROVIDERS: Referring Provider Specialist; Visit Provider Specialist
DX: N20.0 Calculus of kidney (principal); R30.0 Dysuria
CPT/HCPCS: 36415; 74018; 81002; 82310; 83970; 84550; 87086

== ENCOUNTER → 2022-04-12 09:54 | Outpatient (CLI) | payer OTHER, MEDICAID, SELFPAY ==
--- NOTE | 2022-04-12 09:57 | DI.RAD.S_ITS ---
PROCEDURE: XR KUB INDICATIONS: calculus of kidney. TECHNIQUE: One view of the abdomen acquired. COMPARISON: [facility], CT, CT ABDOMEN PELVIS WO CON, 05/17/2021, 8:25. [facility], CR, XR KUB, 07/14/2021, 14:42. [facility], CR, XR KUB, 01/03/2022, 8:27. FINDINGS: Surgical changes and devices: None. Bowel: Bowel gas pattern is normal. Soft tissues: Numerous left kidney nonobstructing calculi can be seen, with the largest seen superiorly measuring 12 mm. Bones: No suspicious bony lesions. IMPRESSION: Nonobstructing left-sided renal calculi are again seen. Dictated by: Tigre Melendez M.D. on 04/12/2022 at 11:18 Approved by: Tigre Melendez M.D. on 04/12/2022 at 11:19
== END ==
PROVIDERS: PCP Registered Nurse; Referring Provider Specialist; Visit Provider Specialist
DX: N20.0 Calculus of kidney (principal)
CPT/HCPCS: 74018

== ENCOUNTER → 2022-04-18 15:08 | Outpatient (CLI) | payer OTHER, MEDICAID, SELFPAY | PROVIDERS: PCP Registered Nurse; Visit Provider Specialist | DX: N13.2 Hydronephrosis with renal and ureteral calculous obstruction (principal); N17.9 Acute kidney failure, unspecified; Q60.0 Renal agenesis, unilateral; Z87.442 Personal history of urinary calculi | CPT/HCPCS: 81002; 87086; 99215 ==

== ENCOUNTER → 2022-04-26 09:29 | Outpatient (CLI) | payer OTHER, SELFPAY ==
--- NOTE | 2022-04-26 09:30 | DI.RAD.S_ITS ---
PROCEDURE: XR KNEE LT 3V INDICATIONS: Knee injury TECHNIQUE: 3 views of the knee were acquired. COMPARISON: None. FINDINGS: Bones: No fractures or dislocations. Mild tricompartmental osteoarthritic changes are seen with joint space narrowing, subchondral sclerosis and small marginal osteophyte formation. No suspicious bony lesions. Soft tissues: No joint effusion. No suspicious soft tissue calcifications. IMPRESSION: No left knee fracture or dislocation. No significant joint effusion. Mild tricompartmental osteoarthritis. Dictated by: Stevenson Bolden M.D. on 04/26/2022 at 9:50 Approved by: Stevenson Bolden M.D. on 04/26/2022 at 9:50
== END ==
PROVIDERS: PCP Registered Nurse; Referring Provider Nurse Practitioner Critical Care Medicine; Visit Provider Nurse Practitioner Critical Care Medicine
DX: M25.562 Pain in left knee (principal); M17.12 Unilateral primary osteoarthritis, left knee
CPT/HCPCS: 73562

== ENCOUNTER 2024-02-09 00:14 | Emergency (ER) | payer OTHER, SELFPAY ==
[2024-02-09 00:23] VITALS: BP 188/100; PULSE 89; RESP 16; TEMP 36.4; O2SAT 98; BMI 26.4
--- NOTE | 2024-02-09 00:39 | ED_ITS ---
HPI - Dental/Oral General Chief complaint: Dental/Oral Stated complaint: dental pain post implant Time Seen by Provider: 02/09/24 00:25 Source: patient Mode of arrival: Ambulatory History of Present Illness HPI Narrative: 48-year-old male presents for left-sided facial pain. Patient had tooth extraction and dental implant post placed approximately 2 weeks ago. He completed a course of penicillin, but had return of left-sided facial pain. Five days ago patient was evaluated by his dental surgeon, who did x-rays and said there was no infection. Patient was started on clindamycin and discharge. Patient states that he started to feel better again, but this evening he had a sudden return of his left-sided pain and presented for evaluation. Pain is located both in his left upper and lower jaw. He denies trismus, pooling of secretions. Related Data Home Medications Medication Instructions Recorded Confirmed tamsulosin 0.4 mg capsule 0.4 mg PO BEDTIME 11/14/21 04/26/22 Previous Rx's Medication Instructions Recorded potassium citrate 15 mEq (1,620 30 meq (2 x 15 mEq) PO BID #180 02/15/22 mg) tablet,extended release tabs diclofenac sodium 1 % topical gel 4 g topical QID PRN knee pain #100 04/26/22 grams meloxicam 7.5 mg tablet 7.5 mg PO DAILY PRN knee pain #14 04/26/22 tabs chlorhexidine gluconate 0.12 % 15 ml buccal BID #473 mL 02/09/24 mouthwash (Peridex) clindamycin HCl 300 mg capsule 300 mg PO QID #20 caps 02/09/24 Allergies Allergy/AdvReac Type Severity Reaction Status Date / Time oxycodone [From Percocet] AdvReac Intermediate Vomiting Verified 04/26/22 08:53 Review of Systems Review of Systems Narrative: See HPI Patient History Medical History History of nephrolithiasis Left nephrolithiasis Absent kidney, congenital Social History household members: none Smoking Status: Current every day smoker alcohol intake: current Smoking Status: Current every day smoker alcohol intake frequency: 0-2 drinks per day Substance Use Type: does not use Exam Initial Vital Signs Initial Vital Signs: Vital Signs Temperature 97.6 F 02/09/24 00:23 Pulse Rate 89 02/09/24 00:23 Respiratory Rate 16 02/09/24 00:23 Blood Pressure 188/100 H 02/09/24 00:23 Pulse Oximetry 98 02/09/24 00:23 Oxygen Delivery Method Room Air 02/09/24 00:23 Const: Awake, alert, no acute distress, nontoxic appearing Mouth: No trismus, no pooling of secretions, dental caries without obvious abscess Skin: Warm, Dry, intact, no rashes Neuro: AO x3, CN II-XII grossly intact, moves all extremities Course Orders Ordered: ED Orders 02/09/24 00:49 CT facial bones w con Stat 02/09/24 01:00 BMP [Basic Metabolic Panel] Stat CBC Auto Diff [Complete Blood Count AUTO DIFF] Stat Discontinued Medications Acetaminophen (Acetaminophen 325 Mg Tablet) 975 mg PO NOW ONE Stop: 02/09/24 00:51 Last Admin: 02/09/24 01:17 Dose: 975 mg Documented By: LINDA Ketorolac Tromethamine (Ketorolac 30 Mg/Ml Vial) 15 mg IV NOW ONE Stop: 02/09/24 00:51 Last Admin: 02/09/24 01:18 Dose: 15 mg Documented By: LINDA Oxycodone HCl (Oxycodone Ir 5 Mg Tablet) 5 mg PO NOW ONE Stop: 02/09/24 00:51 Last Admin: 02/09/24 01:18 Dose: 5 mg Documented By: LINDA Vital Signs Vital signs: Vital Signs - 8 hr 02/09/24 00:23 02/09/24 02:56 Temperature 97.6 F Pulse Rate 89 83 Respiratory Rate 16 16 Blood Pressure 188/100 H 160/94 H Pulse Oximetry 98 94 Oxygen Delivery Method Room Air Room Air MDM - Dental/Oral Differential Diagnosis Differential diagnosis: Likely gingival abscess, dental caries and toothache Lab Data 02/09/24 01:00 02/09/24 01:00 Labs: Lab Results 02/09/24 Range/Units 01:00 WBC 14.1 H (4.5-11.0) X10^3/uL RBC 4.95 (4.5-5.9) X10^6/uL Hgb 14.8 (13.5-17.5) g/dL Hct 43.8 (41-53) % MCV 88.6 (80-100) fL MCH 29.9 (26-34) PG MCHC 33.7 (30-36) % RDW 13.4 (11.6-14.8) % Plt Count 372 (150-400) X10^3/uL Neut % (Auto) 74.1 (50-75) % Lymph % (Auto) 15.7 L (25-40) % [place] % (Auto) 7.2 (3-14) % Eos % (Auto) 2.6 (2-4) % Baso % (Auto) 0.4 (0-2) % Neut # (Auto) 72923 H (2518-3590) /uL Lymph # (Auto) 2200 (1178-2706) /uL [place] # (Auto) 1000 H (0-900) /uL Eos # (Auto) 400 (0-450) /uL Baso # (Auto) 100 (0-100) /uL Sodium 140 (137-145) mmol/L Potassium 3.9 (3.4-5.1) mmol/L Chloride 108 H (98-107) mmol/L Carbon Dioxide 27 (22-32) mmol/L BUN 20 (9-20) mg/dL Creatinine 1.16 (0.66-1.25) mg/dL Estimated GFR > 60 (>60) mL/min BUN/Creatinine Ratio 17.2 (6-22) Glucose 93 (70-100) mg/dL Calcium 9.4 (8.4-10.2) mg/dL Imaging Data CT scan - head: Radiologist's Impression: PROCEDURE: CT FACIAL BONES W CON INDICATIONS: REBOUND MAX AND MANDIBLE PAIN, RECENT DENTAL IMPLANTS TECHNIQUE: After the administration of intravenous contrast, 2.5 mm axial sections acquired from the mid-neck to the frontal sinuses, with coronal and sagittal reformats. For radiation dose reduction, the following was used: automated exposure control, adjustment of mA and/or kV according to patient size. COMPARISON: None. FINDINGS: Image quality: Excellent. Soft tissues: Skin thickening and edema over mandible is seen. No discrete drainable peripherally enhancing fluid collection.. No enlarged lymph nodes. Small lymph nodes are seen in bilateral submandibular space and submental space measures up to 5 mm in size. Vascular: Visualized vascular structures appear patent throughout. Bony vascular foramina and canals appear normal. Bones: Facial bones appear intact, without fractures, erosions, or destruction. Visualized portions of the skull base and auditory canals also appear normal. Sinuses: Mucosal thickening in bilateral ethmoid sinus is and maxillary sinuses is seen worse on the left side. Mastoid air cells are aerated. IMPRESSION: 1. Mild cellulitis over mandible. No discrete drainable abscess collection. 2. No enlarged lymph nodes are seen. Small bilateral submandibular and submental lymph nodes which may be reactive in nature. 3. Left worse than right bilateral maxillary and ethmoid sinusitis. Bilateral mastoids are well aerated. 4. No facial bone or nasal bone abnormalities. Nasal septum is midline. Dictated by: Stevenson Bolden M.D. on 02/09/2024 at 2:06 Approved by: Stevenson Bolden M.D. on 02/09/2024 at 2:09 [facility] Narrative Medical decision making narrative: Rebound facial pain after dental implant despite taking antibiotics. No obvious swelling of the face, patient has dental caries present without obvious abscess. Since this is patient's 2nd round of antibiotics and is still having pain a CT scan will be ordered. Patient has history of renal failure due to kidney stone several years ago. Laboratory work checked, kidney function within normal limits here today. CT scan shows mild cellulitis over the mandible without drainable abscess. No obvious reason for patient's reported severe pain today. Patient is started on Peridex mouthwash, we will continue clindamycin for several additional days. Patient was counseled to continue to take Tylenol for pain and he may add a small amount of ibuprofen if needed. Dental surgeon follow up advised. Discharge Plan Departure Patient Disposition: Home Clinical Impression: Cellulitis of face Instructions: DI for Cellulitis -- Adult Activity Restrictions/Additional Instructions: Your CT today did not show any obvious abscess. You do have mild facial cellulitis, which is likely causing your pain. I will be continuing your clindamycin for another 5 days. Continue your follow up with your dental surgeon. I recommend 400 mg of ibuprofen and up to 1000 mg of Tylenol every 6 hours as needed for pain. Take no more than 4000 mg of Tylenol total per day. Use the Peridex mouthwash twice daily for oral hygiene Prescriptions: New clindamycin HCl 300 mg capsule 300 mg PO QID Qty: 20 0RF chlorhexidine gluconate [Peridex] 0.12 % mouthwash 15 ml buccal BID Qty: 473 0RF No Action tamsulosin 0.4 mg capsule 0.4 mg PO BEDTIME diclofenac sodium 1 % gel 4 g topical QID PRN (Reason: knee pain) Qty: 100 0RF Rx Instructions: apply to single knee up to 4 times daily meloxicam 7.5 mg tablet 7.5 mg PO DAILY PRN (Reason: knee pain) Qty: 14 0RF Rx Instructions: Please take with food and plenty of water potassium citrate 15 mEq tablet extended release 30 meq PO BID Qty: 180 3RF Referrals: Leonid Gonsales ARNP [Primary Care Provider] - Stand Alone Forms: Patient Portal/API, Work Release Note
--- NOTE | 2024-02-09 00:49 | DI.CT.S_ITS ---
PROCEDURE: CT FACIAL BONES W CON INDICATIONS: REBOUND MAX AND MANDIBLE PAIN, RECENT DENTAL IMPLANTS TECHNIQUE: After the administration of intravenous contrast, 2.5 mm axial sections acquired from the mid-neck to the frontal sinuses, with coronal and sagittal reformats. For radiation dose reduction, the following was used: automated exposure control, adjustment of mA and/or kV according to patient size. COMPARISON: None. FINDINGS: Image quality: Excellent. Soft tissues: Skin thickening and edema over mandible is seen. No discrete drainable peripherally enhancing fluid collection.. No enlarged lymph nodes. Small lymph nodes are seen in bilateral submandibular space and submental space measures up to 5 mm in size. Vascular: Visualized vascular structures appear patent throughout. Bony vascular foramina and canals appear normal. Bones: Facial bones appear intact, without fractures, erosions, or destruction. Visualized portions of the skull base and auditory canals also appear normal. Sinuses: Mucosal thickening in bilateral ethmoid sinus is and maxillary sinuses is seen worse on the left side. Mastoid air cells are aerated. IMPRESSION: 1. Mild cellulitis over mandible. No discrete drainable abscess collection. 2. No enlarged lymph nodes are seen. Small bilateral submandibular and submental lymph nodes which may be reactive in nature. 3. Left worse than right bilateral maxillary and ethmoid sinusitis. Bilateral mastoids are well aerated. 4. No facial bone or nasal bone abnormalities. Nasal septum is midline. Dictated by: Stevenson Bolden M.D. on 02/09/2024 at 2:06 Approved by: Stevenson Bolden M.D. on 02/09/2024 at 2:09
[2024-02-09] MEDS: ACETAMINOPHEN 325 MG TABLET 975 MG PO (01:17)
[2024-02-09] MEDS: OXYCODONE IR 5 MG TABLET PO (01:18)
[2024-02-09] MEDS: KETOROLAC 30 MG/ML VIAL 15 MG IV (01:18)
[2024-02-09 01:21] LABS: Add Manual Diff / Slide Review NO; Basophils Absolute Auto 100 /uL (0-100); Basophils Percent Auto 0.4 % (0-2); Eosinophils Absolute Auto 400 /uL (0-450); Eosinophils Percent Auto 2.6 % (2-4); Hematocrit 43.8 % (41-53); Hemoglobin 14.8 g/dL (13.5-17.5); Lymphocytes Absolute Auto 2200 /uL (1100-4500); Lymphocytes Percent Auto 15.7 % (25-40); Mean Corpuscular HGB Conc 33.7 % (30-36); Mean Corpuscular Hemoglobin 29.9 PG (26-34); Mean Corpuscular Volume 88.6 fL (80-100); Monocytes Absolute Auto 1000 /uL (0-900); Monocytes Percent Auto 7.2 % (3-14); Neutrophils Absolute Auto 10400 /uL (1500-7000); Neutrophils Percent Auto 74.1 % (50-75); Platelet Count 372 X10^3/uL (150-400); Red Blood Cell Count 4.95 X10^6/uL (4.5-5.9); Red Cell Distribution Width 13.4 % (11.6-14.8); White Blood Cell Count 14.1 X10^3/uL (4.5-11.0)
[2024-02-09 01:26] LABS: BUN Creatinine Ratio 17.2 (6-22); Blood Urea Nitrogen 20 mg/dL (9-20); Calcium 9.4 mg/dL (8.4-10.2); Carbon Dioxide 27 mmol/L (22-32); Chloride 108 mmol/L (98-107); Estimated Glomerular Filt Rate > 60 mL/min (>60); Glucose 93 mg/dL (70-100); HEMOLYSIS 19 (0-50); Potassium 3.9 mmol/L (3.4-5.1); Sodium 140 mmol/L (137-145)
[2024-02-09 02:56] VITALS: BP 160/94; PULSE 83; RESP 16; O2SAT 94
== END 2024-02-09 02:58 | disposition home or self-care (01) ==
PROVIDERS: Emergency Provider Emergency Medicine; PCP Registered Nurse
DX: L03.211 Cellulitis of face (principal)
CPT/HCPCS: 36415; 70487; 80048; 85025; 96374; 99284; J1885; Q9967

== ENCOUNTER 2024-02-10 08:48 | Emergency (ER) | payer OTHER, SELFPAY ==
[2024-02-10 09:05] VITALS: PULSE 105; O2SAT 97
[2024-02-10 09:13] VITALS: BP 193/97; PULSE 111; RESP 17; TEMP 36.5; O2SAT 96; BMI 26.4
[2024-02-10 09:30] VITALS: BP 180/88; PULSE 98; TEMP 36.7; O2SAT 95
--- NOTE | 2024-02-10 09:43 | PC.NURSE ---
Pt educated not to drive while taking his hydrocodone. Pt informed we can get him a ride home. Pt expressed understanding.
--- NOTE | 2024-02-10 09:51 | ED_ITS ---
HPI - Recheck/Abnormal Lab/Rx General Chief Complaint: Recheck/Abnormal Lab/Rx Stated Complaint: FACE SWOLLEN FROM DENTAL IMPLANT WAS HERE T-1 Time Seen by Provider: 02/10/24 08:51 Source: patient, RN notes reviewed and old records reviewed Mode of arrival: Family Vehicle Limitations: no limitations History of Present Illness HPI narrative: 48-year-old male who had a recent tooth extraction dental implant replaced proximally 2 weeks ago. Was seen here on 02/09/2024 after completing a course of penicillin, then treated with clindamycin complaint of left-sided facial pain. Patient was seen had labs as well as CT facial bones on 02/09/2024 with contrast which showed mild cellulitis over the mandible, small bilateral submandibular and submental nodes which maybe reactive, left worse than right bilateral maxillary ethmoid sinusitis well-aerated mastoids. Patient was started on Peridex mouthwash and recommended to continue clindamycin. Patient states that he had just pain on that side. Was seen was told to return if he would increased swelling. He developed some swelling overnight into this morning. No redness. He states swelling is over the area of the pain which is at the dental implant and radiates up towards his sinus. Patient states no fevers. No warmth. No fluid drainage or fluid collections within the mouth. Pain has been persistent he did take a [place] which was helpful. Patient states no tightness in his airway, no difficulty swallowing no swelling of the oropharynx. No nausea or vomiting. No other breathing issues. No radiation of pain to the ear. Patient has follow up appointment on Sunday with his dental provider. He has been continuing the clindamycin and had a prescription for additional sent which he was picking up today. He has had a dose this morning already states he has been taking it regularly. He has had about 10 days total so far. Patient states no known allergies to medications. Has had prior surgery for his kidney, does have a known single kidney. Patient states does use tobacco, occasional alcohol, no recreational drugs. Related Data Home Medications Medication Instructions Recorded Confirmed tamsulosin 0.4 mg capsule 0.4 mg PO BEDTIME 11/14/21 04/26/22 Previous Rx's Medication Instructions Recorded potassium citrate 15 mEq (1,620 30 meq (2 x 15 mEq) PO BID #180 02/15/22 mg) tablet,extended release tabs diclofenac sodium 1 % topical gel 4 g topical QID PRN knee pain #100 04/26/22 grams meloxicam 7.5 mg tablet 7.5 mg PO DAILY PRN knee pain #14 04/26/22 tabs chlorhexidine gluconate 0.12 % 15 ml buccal BID #473 mL 02/09/24 mouthwash (Peridex) clindamycin HCl 300 mg capsule 300 mg PO QID #20 caps 02/09/24 amoxicillin 875 mg-potassium 1 tab PO Q12H #20 tabs 02/10/24 clavulanate 125 mg tablet Allergies Allergy/AdvReac Type Severity Reaction Status Date / Time oxycodone [From Percocet] AdvReac Intermediate Vomiting Verified 04/26/22 08:53 Review of Systems Review of Systems ROS Unobtainable: All systems reviewed & are unremarkable except as noted in HPI and below Patient History Medical History History of nephrolithiasis Left nephrolithiasis Absent kidney, congenital Social History household members: none Smoking Status: Current every day smoker alcohol intake: current Smoking Status: Current every day smoker alcohol intake frequency: 0-2 drinks per day Substance Use Type: does not use Exam Narrative Exam Narrative: GEN: well nourished, well appearing male, alert and oriented x 3, patient appears to be in mild distress. HEENT: Atraumatic, pupils are equal round reactive to light, extraocular movements are intact, nares are clear, TMs are clear with no fluid, there is no conjunctival pallor. Throat is clear without any exudates, erythema, tonsillar enlargement or uvular deviation, patient has some mild swelling over the left maxillary sinus and cheek, no bony tenderness, no warmth, no erythema, no fluctuance or fluid collection, patient has no trismus no difficulty with movement. On dental exam patient is implant appears in place, there is some mild swelling but no fluid collection appreciated, there is no swelling of the oropharynx otherwise. No difficulty with secretions. No hoarseness or muffled voice. HEART: Regular rate and rhythm without murmur, clicks, rubs. LUNGS:Lungs clear to auscultation, no wheezes, rales, crackles, chest moves symmetrically ABD:bowel sounds normal, soft, non-tender, no guarding, rebound, rigidity, no masses noted, no hepatosplenomegaly MSCL: full range of motion, normal gait NEURO:CN 2-12 intact, sensation normal Initial Vital Signs Initial Vital Signs: Vital Signs Pulse Rate 105 H 02/10/24 09:05 Pulse Oximetry 97 02/10/24 09:05 Course Orders Ordered: Discontinued Medications Amoxicillin/Clavulanate Potassium (Amoxicillin/Clav 875/125 Mg) 1 tab PO NOW ONE Stop: 02/10/24 10:32 Last Admin: 02/10/24 10:54 Dose: 1 tab Documented By: JAREN Vital Signs Vital signs: Vital Signs - 8 hr 02/10/24 09:05 02/10/24 09:13 02/10/24 09:30 Temperature 97.7 F Pulse Rate 105 H 111 H Respiratory Rate 17 Blood Pressure 193/97 H 180/88 H Pulse Oximetry 97 96 Oxygen Delivery Method Room Air 02/10/24 09:30 02/10/24 10:00 02/10/24 10:00 Temperature 98.1 F Pulse Rate 98 H 90 Respiratory Rate 15 Blood Pressure 156/104 H Pulse Oximetry 95 95 Oxygen Delivery Method Room Air Room Air MDM - Recheck/Abnormal Lab/Rx Imaging Data CT facial bones: Radiologist's Impression: [place] [id number] CT Scan Report Signed Patient: Robert Strong MR#: [id number] : 1975 Acct:[id number] Age/Sex: 48 / M Date of Service: 02/09/24 Loc: ED Accession Number: [id number] Procedure: CT facial bones w con Ordering Provider: Rosario Tinoco MD PROCEDURE: CT FACIAL BONES W CON INDICATIONS: REBOUND MAX AND MANDIBLE PAIN, RECENT DENTAL IMPLANTS TECHNIQUE: After the administration of intravenous contrast, 2.5 mm axial sections acquired from the mid-neck to the frontal sinuses, with coronal and sagittal reformats. For radiation dose reduction, the following was used: automated exposure control, adjustment of mA and/or kV according to patient size. COMPARISON: None. FINDINGS: Image quality: Excellent. Soft tissues: Skin thickening and edema over mandible is seen. No discrete drainable peripherally enhancing fluid collection.. No enlarged lymph nodes. Small lymph nodes are seen in bilateral submandibular space and submental space measures up to 5 mm in size. Vascular: Visualized vascular structures appear patent throughout. Bony vascular foramina and canals appear normal. Bones: Facial bones appear intact, without fractures, erosions, or destruction. Visualized portions of the skull base and auditory canals also appear normal. Sinuses: Mucosal thickening in bilateral ethmoid sinus is and maxillary sinuses is seen worse on the left side. Mastoid air cells are aerated. IMPRESSION: 1. Mild cellulitis over mandible. No discrete drainable abscess collection. 2. No enlarged lymph nodes are seen. Small bilateral submandibular and submental lymph nodes which may be reactive in nature. 3. Left worse than right bilateral maxillary and ethmoid sinusitis. Bilateral mastoids are well aerated. 4. No facial bone or nasal bone abnormalities. Nasal septum is midline. Dictated by: Stevenson Bolden M.D. on 02/09/2024 at 2:06 Approved by: Stevenson Bolden M.D. on 02/09/2024 at 2:09 [facility] Narrative Medical decision making narrative: 48-year-old who has had dental pain since an implant surgery proximally 2 weeks ago. Patient was seen 02/09/2024 had a mild leukocytosis did have CT facial bones which showed some mild cellulitis but no abscess or fluid collection. Patient was having persistent pain but no swelling has had some mild swelling today. No warmth erythema or other red flag symptoms. Patient has been on clindamycin for at least a week he does have a prescription to continue. With bedside ultrasound no obvious fluid collection appreciated. No fluctuance or palpable fluid collection on physical exam. We will hold off on repeating CT today but at a secondary antibiotic with Augmentin. Patient has follow up on Sunday. Recommended to call to see if they can be seen sooner by their dental provider. Discharge Plan Departure Patient Disposition: Home Clinical Impression: Cellulitis of face, Dental implant pain Activity Restrictions/Additional Instructions: Your CT imaging on 02/09/2024 did show mild cellulitis over the mandible but no abscess collection, there was some bilateral but left greater than right maxillary and ethmoid sinusitis. Follow-up with your dental provider, call them tomorrow to see if they can see you before your scheduled appointment on Sunday. I hope you start to feel improved soon. Continue with the clindamycin that you have been prescribed. Secondary antibiotic is included, take 1 tablet every 12 hours. Prescription sent to [facility] in [place]. Also continue with the Peridex or mouthwash twice daily I would recommend taking life cultured yogurt or probiotic 1 or 2 times daily your taking multiple antibiotics over the past several weeks to help protect the good bacteria in your gut. Please return for fevers, increasing swelling, redness, increasing pain, any swelling of the tongue airway or oropharynx, change to voice, persistent vomiting or other new or concerning changes. Prescriptions: New amoxicillin-pot clavulanate 875-125 mg tablet 1 tab PO Q12H Qty: 20 0RF No Action tamsulosin 0.4 mg capsule 0.4 mg PO BEDTIME diclofenac sodium 1 % gel 4 g topical QID PRN (Reason: knee pain) Qty: 100 0RF Rx Instructions: apply to single knee up to 4 times daily meloxicam 7.5 mg tablet 7.5 mg PO DAILY PRN (Reason: knee pain) Qty: 14 0RF Rx Instructions: Please take with food and plenty of water clindamycin HCl 300 mg capsule 300 mg PO QID Qty: 20 0RF chlorhexidine gluconate [Peridex] 0.12 % mouthwash 15 ml buccal BID Qty: 473 0RF potassium citrate 15 mEq tablet extended release 30 meq PO BID Qty: 180 3RF Referrals: Leonid Gonsales ARNP [Primary Care Provider] - Stand Alone Forms: Patient Portal/API, Work Release Note
[2024-02-10 10:00] VITALS: BP 156/104; PULSE 90; RESP 15; O2SAT 95
[2024-02-10 10:30] VITALS: BP 159/94; PULSE 91; RESP 25; O2SAT 98
[2024-02-10] MEDS: AMOXICILLIN/CLAV 875/125 MG 1 TAB PO (10:54)
== END 2024-02-10 11:05 | disposition home or self-care (01) ==
PROVIDERS: Emergency Provider Emergency Medicine; PCP Registered Nurse
DX: L03.211 Cellulitis of face (principal); M27.69 Other endosseous dental implant failure
CPT/HCPCS: 99283

== ENCOUNTER 2024-06-02 14:32 | Observation (INO) | payer OTHER, SELFPAY ==
[2024-06-02] VITALS (8 sets, daily range): BP systolic 125–192; BP diastolic 81–117; PULSE 65–85; RESP 12–20; TEMP 36.1–37; O2SAT 92–98; BMI 27.1; BMI 29.1
--- NOTE | 2024-06-02 | DI.RAD.S_ITS ---
PROCEDURE: XR ABDOMEN 1V INDICATIONS: Cystoscopy W/ Left Ureteral Stent TECHNIQUE: 2 intra procedural views of the abdomen acquired. COMPARISON: [facility], CT, CT ABDOMEN PELVIS WO CON, 06/02/2024, 15:48. FINDINGS: Surgical changes and devices: 2 intraprocedural views demonstrating left ureteral stent placement. Left-sided hydronephrosis is redemonstrated. IMPRESSION: Intraoperative views demonstrating left ureteral stent placement. Left-sided hydronephrosis is redemonstrated. Dictated by: Norm Brewster M.D. on 06/02/2024 at 19:51 Approved by: Norm Brewster M.D. on 06/02/2024 at 19:52
[2024-06-02 15:05] LABS: Add Manual Diff / Slide Review NO; Basophils Absolute Auto 0 /uL (0-100); Basophils Percent Auto 0.3 % (0-2); Eosinophils Absolute Auto 400 /uL (0-450); Eosinophils Percent Auto 2.8 % (2-4); Hemoglobin 15.7 g/dL (13.5-17.5); Lymphocytes Absolute Auto 2400 /uL (1100-4500); Lymphocytes Percent Auto 17.4 % (25-40); Mean Corpuscular HGB Conc 33.3 % (30-36); Mean Corpuscular Hemoglobin 29.4 PG (26-34); Monocytes Absolute Auto 900 /uL (0-900); Monocytes Percent Auto 6.6 % (3-14); Neutrophils Absolute Auto 10000 /uL (1500-7000); Neutrophils Percent Auto 72.9 % (50-75); Platelet Count 343 X10^3/uL (150-400); Red Blood Cell Count 5.34 X10^6/uL (4.5-5.9); Red Cell Distribution Width 14.6 % (11.6-14.8); White Blood Cell Count 13.7 X10^3/uL (4.5-11.0)
[2024-06-02 15:17] LABS: Alanine Aminotransferase 28 IU/L (<50); Albumin 4.7 g/dL (3.5-5.0); Albumin Globulin Ratio 1.4 (1.0-2.8); Alkaline Phosphatase 84 U/L (38-126); Aspartate Aminotransferase 32 IU/L (17-59); BUN Creatinine Ratio 13.4 (6-22); Bilirubin Total 0.7 mg/dL (0.2-1.3); Blood Urea Nitrogen 20 mg/dL (9-20); Carbon Dioxide 22 mmol/L (22-32); Chloride 106 mmol/L (98-107); Estimated Glomerular Filt Rate 58 mL/min (>60); Globulin 3.4 g/dL (1.7-4.1); Glucose 111 mg/dL (70-100); HEMOLYSIS < 15 (0-50); Lipase 129 U/L (23-300); Potassium 3.5 mmol/L (3.4-5.1); Sodium 139 mmol/L (137-145); Total Protein 8.1 g/dL (6.3-8.2)
[2024-06-02 15:30] LABS: Lactate (Lactic Acid) 1.1 mmol/L (0.7-2.1)
[2024-06-02] MEDS: MORPHINE 4 MG/ML INJ IV (15:35)
[2024-06-02] MEDS: ONDANSETRON 4 MG/2 ML INJ IV (15:35)
--- NOTE | 2024-06-02 15:35 | DI.CT.S_ITS ---
PROCEDURE: CT ABDOMEN PELVIS WO CON INDICATIONS: Solitary L kidney; hx of kidney stones, renal failure TECHNIQUE: Axial sections were acquired from the lung bases to the pubic symphysis. Coronal and sagittal reformats were performed. For radiation dose reduction, the following was used: automated exposure control, adjustment of mA and/or kV according to patient size. COMPARISON: [facility], CT, CT ABDOMEN PELVIS WO CON, 05/17/2021, 8:25. FINDINGS: Image quality: Diagnostic. Lower Chest: No significant findings. URINARY: Right Kidney: Absent Left Kidney: Multiple large left renal stones predominant within the upper pole with the largest measuring up to 2.8 x 1.9 x 3.9 cm (AP by TV by cc). Moderate left hydronephrosis. Left kidney is enlarged. Left Ureter: Obstructing stone within the left mid ureter measuring 10 mm resulting in upstream moderate hydronephrosis. Bladder: Normal wall thickness. No stones. ABDOMEN: Liver: No contour-deforming solid mass. Gallbladder: No radiopaque gallstones or wall thickening. Biliary ducts: No biliary dilation. Pancreas: No ductal dilation. Calcifications throughout the pancreas, most notable within the head and uncinate process. Spleen: Size is within normal limits. Subcentimeter hypodensity, too small technique characterize and may represent a simple cyst. Adrenal Glands: No adrenal nodules. Stomach and Bowel: Normal colonic caliber, without significant wall thickening. Normal appendix. Peritoneum: No abnormal intraperitoneal fluid. No free air. Ventral Wall: No hernia. Abdominal Nodes: Mild retroperitoneal lymphadenopathy is again seen. Vessels: Aorta and inferior vena cava are normal in size. Atherosclerotic vascular calcifications. PELVIS: Pelvic Organs: Prostate is enlarged and indenting the base of the urinary bladder.. Pelvic Nodes: Unremarkable. Miscellaneous: Small bilateral fat containing inguinal hernias are seen. Bones: Mild degenerative changes of the spine. IMPRESSION: 1. Obstructing mid left ureteral stone measuring up to 1 cm in axial dimension and 1.6 cm in length. This results in moderate upstream hydroureteronephrosis. 2. Multiple additional nonobstructing left renal stones with the largest measuring up to 3.9 cm. 3. Solitary left kidney. Left kidney is enlarged with perinephric stranding. 4. Mild retroperitoneal lymphadenopathy is redemonstrated of uncertain etiology. Dictated by: Norm Brewster M.D. on 06/02/2024 at 16:11 Approved by: Norm Brewster M.D. on 06/02/2024 at 16:24
[2024-06-02] MEDS: SODIUM CHLORIDE 0.9% 1,000 ML 1000 ML IV (15:37)
--- NOTE | 2024-06-02 15:56 | ED.MALEGU ---
HPI - Male Genitourinary <Jany Cruz PA-C - Last Filed: 06/02/24 17:59> General Chief complaint: Urogenital-Male Stated complaint: kidney stone Time Seen by Provider: 06/02/24 15:00 History of Present Illness HPI Narrative: 49-year-old male with past medical history congenital solitary left kidney, nephrolithiasis presents to the ED with 1 day of left flank pain that is wrapping around to the left abdomen. Patient states that he has not urinated since this morning. Patient feels that the left side of his abdomen is very bloated. Patient complains of nausea, vomiting. No fever, chills. Patient has a congenital solitary left kidney which is enlarged. Patient has had prior kidney stones, with an obstructing kidney stone causing acute renal failure in May 2021. Patient was transferred to [facility] to decompress obstruction by percutaneous nephrolithotomy. Patient has since then been following up with urologist Dr. Pino for prophylactic treatments to prevent further kidney stones. Related Data Previous Rx's Medication Instructions Recorded potassium citrate 15 mEq (1,620 30 meq (2 x 15 mEq) PO BID #180 02/15/22 mg) tablet,extended release tabs diclofenac sodium 1 % topical gel 4 g topical QID PRN knee pain #100 04/26/22 grams meloxicam 7.5 mg tablet 7.5 mg PO DAILY PRN knee pain #14 04/26/22 tabs chlorhexidine gluconate 0.12 % 15 ml buccal BID #473 mL 02/09/24 mouthwash (Peridex) clindamycin HCl 300 mg capsule 300 mg PO QID #20 caps 02/09/24 levofloxacin 500 mg tablet 500 mg PO DAILY #7 tabs 06/02/24 tamsulosin 0.4 mg capsule 0.4 mg PO DAILY #60 caps 06/02/24 Allergies Allergy/AdvReac Type Severity Reaction Status Date / Time oxycodone [From Percocet] AdvReac Intermediate Vomiting Verified 06/02/24 18:18 Patient History <Jany Cruz PA-C - Last Filed: 06/02/24 17:59> Medical History History of nephrolithiasis Left nephrolithiasis Absent kidney, congenital Social History household members: none Smoking Status: Current every day smoker alcohol intake: current Smoking Status: Current every day smoker alcohol intake frequency: 0-2 drinks per day Substance Use Type: does not use Exam <Jany Cruz PA-C - Last Filed: 06/02/24 17:59> Initial Vital Signs Initial Vital Signs: Vital Signs Temperature 97.0 F L 06/02/24 14:38 Pulse Rate 65 06/02/24 14:38 Respiratory Rate 18 06/02/24 14:38 Blood Pressure 192/117 H 06/02/24 14:38 Pulse Oximetry 98 06/02/24 14:38 Oxygen Delivery Method Room Air 06/02/24 14:38 <Noel Law DO - Last Filed: 06/03/24 10:29> Initial Vital Signs Initial Vital Signs: Vital Signs Temperature 97.0 F L 06/02/24 14:38 Pulse Rate 65 06/02/24 14:38 Respiratory Rate 18 06/02/24 14:38 Blood Pressure 192/117 H 06/02/24 14:38 Pulse Oximetry 98 06/02/24 14:38 Oxygen Delivery Method Room Air 06/02/24 14:38 Course <Jany Cruz PA-C - Last Filed: 06/02/24 17:59> Orders Ordered: Discontinued Medications Hydrocodone Bitart/Acetaminophen (Hydrocodone/Acet 5/325 Tablet) 1 tab PO PACUNOW PRN PRN Reason: Mild or moderate pain Hydrocodone Bitart/Acetaminophen (Hydrocodone/Acet 5/325 Tablet) 1 tab PO Q4HR PRN PRN Reason: Pain, Moderate (4-6) Hydrocodone Bitart/Acetaminophen (Hydrocodone/Acet 10/325 Tablet) 1 tab PO Q4HR PRN PRN Reason: Pain, Severe (7-10) Hydrocodone Bitart/Acetaminophen (Hydrocodone/Acet 5/325 Prepack) 1 bottle MISC DIRECTED ONE Stop: 06/02/24 19:24 Last Admin: 06/02/24 19:39 Dose: 1 bottle Documented By: RL Hydromorphone HCl (Hydromorphone 1 Mg Inj) 1 mg IV NOW ONE Stop: 06/02/24 16:25 Last Admin: 06/02/24 16:38 Dose: 1 mg Documented By: MPO Hydromorphone HCl (Hydromorphone 1 Mg Inj) 0 mg IV Q5MIN PRN PRN Reason: Pain, Moderate (4-6) Hydromorphone HCl (Hydromorphone 1 Mg Inj) 0.5 mg IV Q2H PRN PRN Reason: Breakthrough Pain Hydroxyzine HCl (Hydroxyzine 50 Mg/Ml Inj) 50 mg IM NOW PRN PRN Reason: Pain, Moderate (4-6) Sodium Chloride (Normal Saline 0.9%) 1,000 mls @ 1,000 mls/hr IV BOLUS ONE Stop: 06/02/24 16:25 Last Infusion: 06/02/24 17:09 Dose: Infused Documented By: Admin: 06/02/24 15:37 Dose: 1,000 mls/hr Documented By: MPO Ceftriaxone Sodium 1,000 mg/ (Sodium Chloride) 100 mls @ 200 mls/hr IV NOW ONE Stop: 06/02/24 16:38 Last Infusion: 06/02/24 17:36 Dose: Infused Documented By: Admin: 06/02/24 17:08 Dose: 200 mls/hr Documented By: MPO Ceftriaxone Sodium 1,000 mg/ (Sodium Chloride) 100 mls @ 200 mls/hr IV NOW ONE Stop: 06/02/24 17:28 Last Admin: 06/02/24 17:55 Dose: 200 mls/hr Documented By: MPO Lactated Ringer's (Lactated Ringers) 1,000 mls @ 42 mls/hr IV CONT STEPHANIE Last Infusion: 06/02/24 20:58 Dose: Infused Documented By: Admin: 06/02/24 18:29 Dose: 42 mls/hr Documented By: EF Acetaminophen (Ofirmev) 1,000 mg in 100 mls @ 400 mls/hr IV NOW ONE Stop: 06/02/24 19:15 Last Infusion: 06/02/24 20:58 Dose: Infused Documented By: Admin: 06/02/24 18:48 Dose: 400 mls/hr Documented By: VIPUL Iopamidol (Iopamidol 30 Ml Vial) 30 ml INJ NOW ONE Stop: 06/02/24 19:08 Last Admin: 06/02/24 19:00 Dose: 30 ml Documented By: CARA Meperidine HCl (Meperidine 50 Mg/Ml Inj) 25 mg IV PACUNOW PRN PRN Reason: Moderate pain or shivering Metoclopramide HCl (Metoclopramide 10 Mg/2 Ml Inj) 10 mg IV NOW PRN PRN Reason: Nausea And Vomiting Morphine Sulfate (Morphine 4 Mg/Ml Inj) 4 mg IV NOW ONE Stop: 06/02/24 15:26 Last Admin: 06/02/24 15:35 Dose: 4 mg Documented By: RHYS Ondansetron HCl (Ondansetron 4 Mg/2 Ml Inj) 4 mg IV NOW PRN PRN Reason: Nausea And Vomiting Ondansetron HCl (Ondansetron 4 Mg Odt) 4 mg PO NOW PRN PRN Reason: Nausea And Vomiting Ondansetron HCl (Ondansetron 4 Mg/2 Ml Inj) 4 mg IV NOW ONE Stop: 06/02/24 15:26 Last Admin: 06/02/24 15:35 Dose: 4 mg Documented By: RHYS Ondansetron HCl (Ondansetron 4 Mg/2 Ml Inj) 4 mg IV NOW PRN PRN Reason: Nausea And Vomiting Ondansetron HCl (Ondansetron 4 Mg/2 Ml Inj) 4 mg IV Q4H PRN PRN Reason: Nausea And Vomiting Scopolamine (Scopolamine 1 Patch) 1 patch TOP NOW ONE Stop: 06/02/24 19:01 Last Admin: 06/02/24 18:40 Dose: 1 patch Documented By: VIPUL Scopolamine (Scopolamine 1 Patch) 1 patch TOP NOW ONE Stop: 06/02/24 19:01 Vital Signs Vital signs: Vital Signs - 8 hr 06/02/24 14:38 Temperature 97.0 F L Pulse Rate 65 Respiratory Rate 18 Blood Pressure 192/117 H Pulse Oximetry 98 Oxygen Delivery Method Room Air <Noel Law DO - Last Filed: 06/03/24 10:29> Orders Ordered: Discontinued Medications Hydrocodone Bitart/Acetaminophen (Hydrocodone/Acet 5/325 Tablet) 1 tab PO PACUNOW PRN PRN Reason: Mild or moderate pain Hydrocodone Bitart/Acetaminophen (Hydrocodone/Acet 5/325 Tablet) 1 tab PO Q4HR PRN PRN Reason: Pain, Moderate (4-6) Hydrocodone Bitart/Acetaminophen (Hydrocodone/Acet 10/325 Tablet) 1 tab PO Q4HR PRN PRN Reason: Pain, Severe (7-10) Hydrocodone Bitart/Acetaminophen (Hydrocodone/Acet 5/325 Prepack) 1 bottle MISC DIRECTED ONE Stop: 06/02/24 19:24 Last Admin: 06/02/24 19:39 Dose: 1 bottle Documented By: EDGAR Hydromorphone HCl (Hydromorphone 1 Mg Inj) 1 mg IV NOW ONE Stop: 06/02/24 16:25 Last Admin: 06/02/24 16:38 Dose: 1 mg Documented By: MPO Hydromorphone HCl (Hydromorphone 1 Mg Inj) 0 mg IV Q5MIN PRN PRN Reason: Pain, Moderate (4-6) Hydromorphone HCl (Hydromorphone 1 Mg Inj) 0.5 mg IV Q2H PRN PRN Reason: Breakthrough Pain Hydroxyzine HCl (Hydroxyzine 50 Mg/Ml Inj) 50 mg IM NOW PRN PRN Reason: Pain, Moderate (4-6) Sodium Chloride (Normal Saline 0.9%) 1,000 mls @ 1,000 mls/hr IV BOLUS ONE Stop: 06/02/24 16:25 Last Infusion: 06/02/24 17:09 Dose: Infused Documented By: Admin: 06/02/24 15:37 Dose: 1,000 mls/hr Documented By: MPO Ceftriaxone Sodium 1,000 mg/ (Sodium Chloride) 100 mls @ 200 mls/hr IV NOW ONE Stop: 06/02/24 16:38 Last Infusion: 06/02/24 17:36 Dose: Infused Documented By: Admin: 06/02/24 17:08 Dose: 200 mls/hr Documented By: MPO Ceftriaxone Sodium 1,000 mg/ (Sodium Chloride) 100 mls @ 200 mls/hr IV NOW ONE Stop: 06/02/24 17:28 Last Admin: 06/02/24 17:55 Dose: 200 mls/hr Documented By: MPO Lactated Ringer's (Lactated Ringers) 1,000 mls @ 42 mls/hr IV CONT STEPHANIE Last Infusion: 06/02/24 20:58 Dose: Infused Documented By: Admin: 06/02/24 18:29 Dose: 42 mls/hr Documented By: EF Acetaminophen (Ofirmev) 1,000 mg in 100 mls @ 400 mls/hr IV NOW ONE Stop: 06/02/24 19:15 Last Infusion: 06/02/24 20:58 Dose: Infused Documented By: Admin: 06/02/24 18:48 Dose: 400 mls/hr Documented By: VIPUL Iopamidol (Iopamidol 30 Ml Vial) 30 ml INJ NOW ONE Stop: 06/02/24 19:08 Last Admin: 06/02/24 19:00 Dose: 30 ml Documented By: CARA Meperidine HCl (Meperidine 50 Mg/Ml Inj) 25 mg IV PACUNOW PRN PRN Reason: Moderate pain or shivering Metoclopramide HCl (Metoclopramide 10 Mg/2 Ml Inj) 10 mg IV NOW PRN PRN Reason: Nausea And Vomiting Morphine Sulfate (Morphine 4 Mg/Ml Inj) 4 mg IV NOW ONE Stop: 06/02/24 15:26 Last Admin: 06/02/24 15:35 Dose: 4 mg Documented By: RHYS Ondansetron HCl (Ondansetron 4 Mg/2 Ml Inj) 4 mg IV NOW PRN PRN Reason: Nausea And Vomiting Ondansetron HCl (Ondansetron 4 Mg Odt) 4 mg PO NOW PRN PRN Reason: Nausea And Vomiting Ondansetron HCl (Ondansetron 4 Mg/2 Ml Inj) 4 mg IV NOW ONE Stop: 06/02/24 15:26 Last Admin: 06/02/24 15:35 Dose: 4 mg Documented By: RHYS Ondansetron HCl (Ondansetron 4 Mg/2 Ml Inj) 4 mg IV NOW PRN PRN Reason: Nausea And Vomiting Ondansetron HCl (Ondansetron 4 Mg/2 Ml Inj) 4 mg IV Q4H PRN PRN Reason: Nausea And Vomiting Scopolamine (Scopolamine 1 Patch) 1 patch TOP NOW ONE Stop: 06/02/24 19:01 Last Admin: 06/02/24 18:40 Dose: 1 patch Documented By: VIPUL Scopolamine (Scopolamine 1 Patch) 1 patch TOP NOW ONE Stop: 06/02/24 19:01 Vital Signs Vital signs: Vital Signs - 8 hr 06/02/24 14:38 Temperature 97.0 F L Pulse Rate 65 Respiratory Rate 18 Blood Pressure 192/117 H Pulse Oximetry 98 Oxygen Delivery Method Room Air MDM - Male Genitourinary <Hyma RAMON Cruz - Last Filed: 06/02/24 17:59> Lab Data 06/02/24 14:50 06/02/24 14:50 Labs: Lab Results 06/02/24 06/02/24 Range/Units 14:50 16:08 WBC 13.7 H (4.5-11.0) X10^3/uL RBC 5.34 (4.5-5.9) X10^6/uL Hgb 15.7 (13.5-17.5) g/dL Hct 47.0 (41-53) % MCV 88.0 (80-100) fL MCH 29.4 (26-34) PG MCHC 33.3 (30-36) % RDW 14.6 (11.6-14.8) % Plt Count 343 (150-400) X10^3/uL Neut % (Auto) 72.9 (50-75) % Lymph % (Auto) 17.4 L (25-40) % [place] % (Auto) 6.6 (3-14) % Eos % (Auto) 2.8 (2-4) % Baso % (Auto) 0.3 (0-2) % Neut # (Auto) 23903 H (7762-6962) /uL Lymph # (Auto) 2400 (5825-8190) /uL [place] # (Auto) 900 (0-900) /uL Eos # (Auto) 400 (0-450) /uL Baso # (Auto) 0 (0-100) /uL Sodium 139 (137-145) mmol/L Potassium 3.5 (3.4-5.1) mmol/L Chloride 106 (98-107) mmol/L Carbon Dioxide 22 (22-32) mmol/L BUN 20 (9-20) mg/dL Creatinine 1.49 H (0.66-1.25) mg/dL Estimated GFR 58 L (>60) mL/min BUN/Creatinine Ratio 13.4 (6-22) Glucose 111 H (70-100) mg/dL Lactate 1.1 (0.7-2.1) mmol/L Calcium 10.0 (8.4-10.2) mg/dL Total Bilirubin 0.7 (0.2-1.3) mg/dL AST 32 (17-59) IU/L ALT 28 (<50) IU/L Alkaline Phosphatase 84 (38-126) U/L Total Protein 8.1 (6.3-8.2) g/dL Albumin 4.7 (3.5-5.0) g/dL Globulin 3.4 (1.7-4.1) g/dL Albumin/Globulin Ratio 1.4 (1.0-2.8) Lipase 129 (23-300) U/L Urine Color Yellow Urine Appearance Cloudy Urine pH 7.5 (4.5-8.0) Ur Specific [place] 1.015 (1.000-1.035) Urine Protein 2+ H (Negative) Urine Glucose (UA) Negative (Negative) g/dL Urine Ketones Negative (NEGATIVE) Urine Occult Blood 3+ H (Negative) Urine Nitrate Negative (Negative) Urine Bilirubin Negative (NEGATIVE) Urine Urobilinogen 0.2 (0.2) E.U./dL Ur Leukocyte Esterase 2+ H (NEGATIVE) Urine RBC 10-30/hpf H (0-5/HPF) Urine WBC 30-100/hpf H (0-5/HPF) Ur Squamous Epith Cells None seen (0-5/HPF) Triple Phos Crystals Moderate Amorphous Sediment 1+ Urine Bacteria Many (>30) H (None) Ur Culture Indicated? Specimen cultured Vol Urine Centrifuged 10ml (spun) Urine Dip Bedside Urine Glucose Negative Bedside Urine Bilirubin - Negative Bedside Urine Ketone - Negative Urine Specific [place] 1.015 Bedside Urine Occult Blood +++ Bedside Urine pH 7.5 Bedside Urine Protein + 30 Bedside Urine Urobilinogen - Negative Bedside Urine Nitrite - Negative Bedside Urine Leukocytes +++ 500 Esterase MDM Narrative Medical decision making narrative: 49-year-old male with past medical history congenital solitary left kidney, nephrolithiasis presents to the ED with 1 day of left flank pain that is wrapping around to the left abdomen. Concern for UTI versus pyelonephritis versus kidney stone versus acute renal failure versus sepsis versus other. Will obtain labs, lactate, urinalysis, CT abdomen pelvis. Will give morphine, zofran, IVF. Pain was inadequately controlled with morphine. Patient was given 1 g of Dilaudid IV. Urinary catheter was placed with a urine return of 100 mL. Labs notable for mildly elevated WBC at 13.7, mild DESIREE with creatinine at 1.49, GFR 58. Remaining labs are unremarkable. Urine is notable for 2+ leukocyte esterase, 10-30 urine RBC, 30-100 urine WBCs, 2+ urine protein. CT abdomen pelvis shows a obstructing mid left ureteral stone measuring up to 1 cm in axial dimension and 1.6 cm in length. This results in moderate upstream hydroureteronephrosis. Multiple additional nonobstructing left renal stones with the largest measuring up to 3.9 cm. There is a solitary left kidney. Left kidney is enlarged with perinephric stranding. Mild retroperitoneal lymphadenopathy is demonstrated of uncertain etiology. Patient started on [address] Lockhart from Urology was consulted. He graciously accepts the patient for stenting in the OR today. Discussed findings with patient. He is agreeable with the plan and disposition. <Noel Law, DO - Last Filed: 06/03/24 10:29> Lab Data Labs: Lab Results 06/02/24 06/02/24 Range/Units 14:50 16:08 WBC 13.7 H (4.5-11.0) X10^3/uL RBC 5.34 (4.5-5.9) X10^6/uL Hgb 15.7 (13.5-17.5) g/dL Hct 47.0 (41-53) % MCV 88.0 (80-100) fL MCH 29.4 (26-34) PG MCHC 33.3 (30-36) % RDW 14.6 (11.6-14.8) % Plt Count 343 (150-400) X10^3/uL Neut % (Auto) 72.9 (50-75) % Lymph % (Auto) 17.4 L (25-40) % [place] % (Auto) 6.6 (3-14) % Eos % (Auto) 2.8 (2-4) % Baso % (Auto) 0.3 (0-2) % Neut # (Auto) 06556 H (7386-4947) /uL Lymph # (Auto) 2400 (8428-1508) /uL [place] # (Auto) 900 (0-900) /uL Eos # (Auto) 400 (0-450) /uL Baso # (Auto) 0 (0-100) /uL Sodium 139 (137-145) mmol/L Potassium 3.5 (3.4-5.1) mmol/L Chloride 106 (98-107) mmol/L Carbon Dioxide 22 (22-32) mmol/L BUN 20 (9-20) mg/dL Creatinine 1.49 H (0.66-1.25) mg/dL Estimated GFR 58 L (>60) mL/min BUN/Creatinine Ratio 13.4 (6-22) Glucose 111 H (70-100) mg/dL Lactate 1.1 (0.7-2.1) mmol/L Calcium 10.0 (8.4-10.2) mg/dL Total Bilirubin 0.7 (0.2-1.3) mg/dL AST 32 (17-59) IU/L ALT 28 (<50) IU/L Alkaline Phosphatase 84 (38-126) U/L Total Protein 8.1 (6.3-8.2) g/dL Albumin 4.7 (3.5-5.0) g/dL Globulin 3.4 (1.7-4.1) g/dL Albumin/Globulin Ratio 1.4 (1.0-2.8) Lipase 129 (23-300) U/L Urine Color Yellow Urine Appearance Cloudy Urine pH 7.5 (4.5-8.0) Ur Specific [place] 1.015 (1.000-1.035) Urine Protein 2+ H (Negative) Urine Glucose (UA) Negative (Negative) g/dL Urine Ketones Negative (NEGATIVE) Urine Occult Blood 3+ H (Negative) Urine Nitrate Negative (Negative) Urine Bilirubin Negative (NEGATIVE) Urine Urobilinogen 0.2 (0.2) E.U./dL Ur Leukocyte Esterase 2+ H (NEGATIVE) Urine RBC 10-30/hpf H (0-5/HPF) Urine WBC 30-100/hpf H (0-5/HPF) Ur Squamous Epith Cells None seen (0-5/HPF) Triple Phos Crystals Moderate Amorphous Sediment 1+ Urine Bacteria Many (>30) H (None) Ur Culture Indicated? Specimen cultured Vol Urine Centrifuged 10ml (spun) Urine Dip Bedside Urine Glucose Negative Bedside Urine Bilirubin - Negative Bedside Urine Ketone - Negative Urine Specific [place] 1.015 Bedside Urine Occult Blood +++ Bedside Urine pH 7.5 Bedside Urine Protein + 30 Bedside Urine Urobilinogen - Negative Bedside Urine Nitrite - Negative Bedside Urine Leukocytes +++ 500 Esterase MDM Narrative Medical decision making narrative: 49-year-old male with past medical history congenital solitary left kidney, nephrolithiasis presents to the ED with 1 day of left flank pain that is wrapping around to the left abdomen. Concern for UTI versus pyelonephritis versus kidney stone versus acute renal failure versus sepsis versus other. Will obtain labs, lactate, urinalysis, CT abdomen pelvis. Will give morphine, zofran, IVF. Pain was inadequately controlled with morphine. Patient was given 1 g of Dilaudid IV. Urinary catheter was placed with a urine return of 100 mL. Labs notable for mildly elevated WBC at 13.7, mild DESIREE with creatinine at 1.49, GFR 58. Remaining labs are unremarkable. Urine is notable for 2+ leukocyte esterase, 10-30 urine RBC, 30-100 urine WBCs, 2+ urine protein. CT abdomen pelvis shows a obstructing mid left ureteral stone measuring up to 1 cm in axial dimension and 1.6 cm in length. This results in moderate upstream hydroureteronephrosis. Multiple additional nonobstructing left renal stones with the largest measuring up to 3.9 cm. There is a solitary left kidney. Left kidney is enlarged with perinephric stranding. Mild retroperitoneal lymphadenopathy is demonstrated of uncertain etiology. Patient started on [address] Lockhart from Urology was consulted. He graciously accepts the patient for stenting in the OR today. Discussed findings with patient. He is agreeable with the plan and disposition. Dr. Law: I was immediately available in the department for consultation. Documentation has been reviewed. I agree with assessment and plan. Discharge Plan Departure Patient Disposition: Admitted to Surgery Clinical Impression: Left nephrolithiasis Urinary tract infection Qualifiers: Urinary tract infection type: acute pyelonephritis Qualified Code(s): N10 - Acute pyelonephritis Admit Date/Time: 06/02/24 17:51 Admit Provider: Adam Lockhart
[2024-06-02 16:31] LABS: Bilirubin Urine UA NEGATIVE (NEGATIVE); Color Urine UA YELLOW; Glucose Urine UA NEGATIVE (Negative); Ketones Urine UA NEGATIVE (NEGATIVE); Leukocyte Esterase Urine UA 2+ (NEGATIVE); Nitrite Urine UA NEGATIVE (Negative); Occult Blood Urine UA 3+ (Negative); Protein Urine UA 2+ (Negative); Specific Gravity Urine UA 1.015 (1.000-1.035); Urobilinogen Urine UA 0.2 E.U./dL (0.2); pH Urine UA 7.5 (4.5-8.0)
[2024-06-02] MEDS: HYDROMORPHONE 1 MG INJ IV (16:38)
[2024-06-02 16:43] LABS: Appearance Urine UA CLOUDY
[2024-06-02 16:44] LABS: Urine Volume 10mL (spun)
[2024-06-02 16:46] LABS: Bacteria Urine Many (>30); RBC Urine 10-30/HPF (0-5/HPF); WBC Urine 30-100/HPF (0-5/HPF)
[2024-06-02 16:47] LABS: Amorphous Sediment Urine 1+; Culture Indicated Urine Specimen Cultured; Squamous Epithelial Cell Urine None Seen (0-5/HPF); Triple Phosphate Crystal Urine Moderate
[2024-06-02] MEDS: cefTRIAXone 1,000 MG in SODIUM CHLORIDE 0.9% 100 ML 200 MG IV ×2 (17:08→17:55)
--- NOTE | 2024-06-02 17:47 | P.CONS_ITS ---
History of Present Illness Consult details Date Patient Seen: 06/02/24 Time Patient Seen: 17:15 Chief complaint: kidney stone Narrative: 49 y/o M w/ a h/o a congenital solitary left kidney presented to ED for evaluation of severe left flank pain with nausea. Briefly, he was noted to have a large obstructing left ureteral calculus in May that required an urgent cystoscopy with left ureteral stent placement followed by transfer to an outside hospital for management of his temporary renal failure. He also had a left PCNL in Oct. Over the last few days he admits to severe left flank pain with nausea that has continued to worsen, this episode is much more painful than his prior episode in 2020. His evaluation is notable for a WBC of 13.7, sCr of 1.49 and an infected appearing UA. He otherwise has remained hemodynamically stable and afebrile. His CT KUB was notable for a 1.6cm left mid ureterolith with resultant upstream moderate hydroureteronephrosis as well as multiple large left renal stones, the largest of which is nearly 4cm in greatest diameter. Of note, while he was trying to provide his urine specimen he was unable to urinate. Therefore, the ED placed a raygoza catheter with immediate drainage of 100cc of clear yellow urine. Meds Home Medications and Allergies Home Medications Medication Instructions Recorded Confirmed Type tamsulosin 0.4 mg capsule 0.4 mg PO BEDTIME 11/14/21 04/26/22 History potassium citrate 15 mEq (1,620 30 meq (2 x 15 mEq) PO BID #180 02/15/22 04/26/22 Rx mg) tablet,extended release tabs diclofenac sodium 1 % topical gel 4 g topical QID PRN knee pain #100 04/26/22 04/26/22 Rx grams meloxicam 7.5 mg tablet 7.5 mg PO DAILY PRN knee pain #14 04/26/22 04/26/22 Rx tabs chlorhexidine gluconate 0.12 % 15 ml buccal BID #473 mL 02/09/24 Rx mouthwash (Peridex) clindamycin HCl 300 mg capsule 300 mg PO QID #20 caps 02/09/24 Rx amoxicillin 875 mg-potassium 1 tab PO Q12H #20 tabs 02/10/24 Rx clavulanate 125 mg tablet Allergies Allergy/AdvReac Type Severity Reaction Status Date / Time oxycodone [From Percocet] AdvReac Intermediate Vomiting Verified 04/26/22 08:53 Review of Systems Review of Systems Narrative: CONSTITUTIONAL: Denies weight loss, fevers, chills. HEENT: Denies change in vision, hearing. RESP: Denies SOB, cough. CV: Denies palpations, CP. GI: Denies abodminal pain, nausea, vomiting, diarrhea. : Denies dysuria, hematuria, inability to void. MSK: Denies myalgia, joint pain. SKIN: Denies rash, pruritus. NEURO: Denies headache, syncope. PSYCH: Denies recent change in mood, anxiety, depression. Exam Vital Signs (past 8 hours): - 06/02/24 14:38 Temperature 97.0 F L Pulse Rate 65 Respiratory Rate 18 Blood Pressure 192/117 H Pulse Oximetry 98 Oxygen Delivery Method Room Air Oxygen Delivery Method Room Air Narrative Exam Narrative: GEN: Alert and oriented X3. No acute distress. Well-nourished. EYES: PERRLA, EOMI. HENT: Moist mucus membranes, no scleral icterus, normal neck ROM. RESP: Unlabored breathing, equal rise and fall of chest bilaterally, no cyanosis appreciated. CV: No peripheral edema, unremarkable heart rate. ABD: Soft, non-tender, non-distended, no palpable masses. : Raygoza secured and draining clear yellow urine. EXT: No edema, clubbing or cyanosis. SKIN: No rashes or lesions. NEURO: No focal neurologic deficits, CN II-XII grossly intact. PSYCH: Cooperative, appropriate mood and affect. Objective Labs 06/02/24 14:50 06/02/24 14:50 Labs: Laboratory Results - last 24 hr 06/02/24 06/02/24 14:50 16:08 WBC 13.7 H RBC 5.34 Hgb 15.7 Hct 47.0 MCV 88.0 MCH 29.4 MCHC 33.3 RDW 14.6 Plt Count 343 Neut % (Auto) 72.9 Lymph % (Auto) 17.4 L [place] % (Auto) 6.6 Eos % (Auto) 2.8 Baso % (Auto) 0.3 Neut # (Auto) 52500 H Lymph # (Auto) 2400 [place] # (Auto) 900 Eos # (Auto) 400 Baso # (Auto) 0 Sodium 139 Potassium 3.5 Chloride 106 Carbon Dioxide 22 BUN 20 Creatinine 1.49 H Estimated GFR 58 L BUN/Creatinine Ratio 13.4 Glucose 111 H Lactate 1.1 Calcium 10.0 Total Bilirubin 0.7 AST 32 ALT 28 Alkaline Phosphatase 84 Total Protein 8.1 Albumin 4.7 Globulin 3.4 Albumin/Globulin Ratio 1.4 Lipase 129 Urine Color Yellow Urine Appearance Cloudy Urine pH 7.5 Ur Specific [place] 1.015 Urine Protein 2+ H Urine Glucose (UA) Negative Urine Ketones Negative Urine Occult Blood 3+ H Urine Nitrate Negative Urine Bilirubin Negative Urine Urobilinogen 0.2 Ur Leukocyte Esterase 2+ H Urine RBC 10-30/hpf H Urine WBC 30-100/hpf H Ur Squamous Epith Cells None seen Triple Phos Crystals Moderate Amorphous Sediment 1+ Urine Bacteria Many (>30) H Ur Culture Indicated? Specimen cultured Vol Urine Centrifuged 10ml (spun) [facility] Medical History History of nephrolithiasis Left nephrolithiasis Absent kidney, congenital Social History household members: none Tobacco & Substance Use Smoking Status: Current every day smoker alcohol intake: current Assessment & Plan Assessment and plan (1) Ureteral calculus: Status: Acute Plan: 49 y/o M w/ a h/o a congenital left solitary kidney who was noted to have a 1.6cm obstructing left mid ureteral calculus with resultant upstream moderate hydroureteronephrosis. Discussed the need for an urgent left ureteral stent placement due to his solitary kidney as well as the setting of a urinary tract infection. Discussed treatment options to include continued medical expulsion therapy (not recommended secondary to his solitary kidney and current urinary tract infection) vs cystoscopy with left ureteral stent placement. Discussed risks of the procedure to include pain, bleeding, infection, injury to urethra/bladder/ureter, inability to access the ureter requiring discussion with Interventional Radiology regarding a possible ureteral stent placement in an antegrade fashion vs a possible nephroureteral stent and/or percutaneous nephrostomy tube, urinary tract infection, need for emergent open repair of bladder and/or ureter. He indicated understanding and all of his questions were answered to his satisfaction. (2) Urinary tract infection: Qualifiers: Urinary tract infection type: acute pyelonephritis Qualified Code(s): N 10 - Acute pyelonephritis Status: Acute Plan: Please see above. Will discharge home with a 7 day course of antibiotics. (3) Left nephrolithiasis: Status: Acute Plan: Will ultimately need a referral for a left PCNL to be completed at . Time-Based Coding :: [TOTAL MINUTES] spent with patient and on the chart (including review of chart, obtaining history, exam, reviewing outside data, placing orders, documenting exam and treatment plan, and counseling patient) on [DATE]. PROFEE Charge Codes Inpatient or Observation consultation: [id number]
[2024-06-02] MEDS: LACTATED RINGERS 1,000 ML 42 ML IV (18:29)
[2024-06-02] MEDS: SCOPOLAMINE 1 PATCH TOP (18:40)
[2024-06-02] MEDS: ACETAMINOPHEN IV 1,000 MG/100 ML VIAL 400 MG IV (18:48)
--- NOTE | 2024-06-02 18:59 | SUR.OPER ---
Lithotomy on padded OR bed, head on pillow, arms secured on padded arm boards at <90 degrees abduction. Legs secured in padded yellow fins stirrups.
[2024-06-02] MEDS: iopamidoL 30 ML VIAL INJ (19:00)
[2024-06-02] MEDS: HYDROCODONE/ACET 5/325 PREPACK 1 BOTTLE MISC (19:39)
--- NOTE | 2024-06-02 19:43 | PM.OP.1 ---
Procedure & Clinicians Procedure: Cystoscopy Left retrograde ureteropyelogram Left ureteral stent placement Intraoperative interpretation of fluoroscopic images, total time < 1 hour Same procedure as scheduled: Yes Indications: 49 y/o M w/ a h/o a congenital left solitary kidney who was noted to have a 1.6cm obstructing left mid ureteral calculus with resultant upstream moderate hydroureteronephrosis. Discussed the need for an urgent left ureteral stent placement due to his solitary kidney as well as the setting of a urinary tract infection. Surgeon: Adam Lockhart Click Yes if Unassisted: Yes Anesthesia Type: General Operative Notes Findings: Very large left mid ureterolith Closure Type: not applicable Specimen(s): none sent Estimated Blood Loss (mL): 3 Blood products transfused: none Procedure in detail: Patient was identified in the preoperative holding area and consent confirmed. He was then brought to the operating room where general anesthesia was induced.? He was then placed in the low lithotomy position. He was then prepped and draped in the usual sterile fashion. A surgical timeout was conducted and all were in agreement. Access to the bladder was obtained via a 21Fr cystoscope.? He was noted to have a large intravesical median lobe. Cloudy urine was immediately noted within the bladder.? The left ureteral orifice was easily visualized and a 0.035 sensor tip ureteral guidewire was advanced through the 5Fr ureteral catheter and into the left renal collecting system.? The ureteral guidewire was removed and a retrograde pyelogram was performed which noted moderate left hydronephrosis.? The ureteral guidewire was readvanced through the ureteral catheter and into the left renal pelvis.? The ureteral catheter was then removed.? A 6Fr multi-length JJ ureteral stent without strings was then advanced over the guidewire and into the distal left ureter, however, his stone was noted to be very large and the stent was unable to be placed. Therefore, his sensor tip ureteral guidewire was exchanged for an Amplatz superstiff ureteral guidewire. The ureteral stent was then placed over the superstiff ureteral guidewire and into the left renal collecting system.? Upon removal of the ureteral guidewire, a good curl was appreciated within the left renal pelvis upon fluoroscopy and visually within the bladder.? The bladder was then drained and the cystoscope was removed.? Anesthesia was reversed, he was extubated in the OR and transferred to the PACU in stable condition for recovery. Complications: none Post-operative Condition: stable Disposition: PACU Plan for aftercare: Discharge home from PACU. Will place a referral for him to have a left PCNL performed at [facility] given his very large stone burden.
== END 2024-06-02 20:20 | disposition home or self-care (01) ==
LOC: ED 17:51 → AC 17:54
PROVIDERS: Student in an Organized Health Care Education/Training Program; Admitting Provider Urology; Emergency Provider Student in an Organized Health Care Education/Training Program; PCP Registered Nurse; Referring Provider Student in an Organized Health Care Education/Training Program; Visit Provider Urology
PROC: (CPT 52332; principal; 2024-06-02 18:45)
DX: N13.2 Hydronephrosis with renal and ureteral calculous obstruction (principal); Q60.0 Renal agenesis, unilateral
CPT/HCPCS: 52332; 36415; 74018; 74176; 76000; 80053; 81001; 81003; 83605; 83690; 85025; 87040; 87086; 96361; 96365; 96375; 99222; 99284; G0378; J0134; J0330; J0696; J1100; J1170; J1885; J2270; J2405; J2704; J3010; Q9967

== ENCOUNTER → 2025-01-31 17:19 | Outpatient (CLI) | payer OTHER, SELFPAY ==
[2025-01-31 19:01] LABS: Influenza A - CEPHEID Flu A NEGATIVE (NEGATIVE); Influenza B - CEPHEID Flu B NEGATIVE (NEGATIVE); Respiratory Syncytial Virus Negative (Negative)
[2025-01-31 19:03] LABS: COVID-19 CEPHEID 4-PLEX PCR Negative (Negative)
== END ==
PROVIDERS: PCP Registered Nurse; Visit Provider Registered Nurse
DX: R05.1 Acute cough (principal); J02.9 Acute pharyngitis, unspecified
CPT/HCPCS: 0241U; 87070